=== PATIENT | male | born 1965 | race Caucasian/White ===

== ENCOUNTER 2020-02-16 12:32 | Inpatient (IN) | payer MEDICAID, OTHER ==
[2020-02-16] VITALS (10 sets, daily range): BP systolic 51–104; BP diastolic 34–83
[~2020-02-16] VITALS: Ht 182.9 cm; Wt 94.3 kg
[~2020-02-16 12:32] MED LIST: FLUT16SP2 BOTHNARES; LEVO100T9 PO; TRAZ-251 PO; rocuronium 10mg/ml inj IV ONE
[2020-02-16] MEDS ORDERED: ondansetron/PF 4mg/2ml inj IV ONE (13:00)
[2020-02-16] MEDS ORDERED: normal saline 1000ML IV soln IVB ONE ×2 (13:00→14:35)
[2020-02-16] MEDS ORDERED: diltiazem 5mg/ml 5ml inj. IV ONE ×2 (13:00→13:35)
[2020-02-16] MEDS ORDERED: diltiazem-NS 100mg/100ml 100 ML IV SCH (13:05)
[2020-02-16 13:20] LABS: BASOPHILS # (AUTO) 0.1 X10'3 (0-0.2); BASOPHILS % (AUTO) 0.6 % (0-1); EOSINOPHILS % (AUTO) 0.2 % (0-6); HEMATOCRIT 55.5 % (42.0-52.0); LYMPHOCYTES # (AUTO) 2.2 X10'3 (1.1-4.8); LYMPHOCYTES % (AUTO) 15.4 % (21-51); MEAN CORPUSCULAR HEMOGLOBIN 33.4 PG (27.0-31.0); MEAN CORPUSCULAR HGB CONC 32.6 g/dL (33.0-36.5); MEAN CORPUSCULAR VOLUME 102.6 FL (78-98); MEAN PLATELET VOLUME 9.6 FL (7.4-10.4); MONOCYTES # (AUTO) 1.5 X10'3 (0-0.9); MONOCYTES % (AUTO) 10.6 % (2-12); NEUTROPHILS # (AUTO) 10.3 X10'3 (1.8-7.7); NEUTROPHILS % (AUTO) 73.2 % (42-75); PLATELET COUNT 216 X10'3 (140-440); RED BLOOD COUNT 5.41 X10'6 (4.70-6.10); RED CELL DISTRIBUTION WIDTH 15.2 % (11.5-14.5); WHITE BLOOD COUNT 14.1 X10'3 (4.5-11.0)
[2020-02-16 13:22] LABS: HEMOGLOBIN 18.1 g/dl (14.0-17.9)
--- NOTE | 2020-02-16 13:25 | NUR ---
Pt gave verbal consent to update Corrine ([phone]) who reports pt was seen @ [facility] ~ 1 wk ago where Synthroid was started. Corrine reports increased agitation with outbursts worsening in past 24 hrs. Pt's Psychiatrist Michelle Colindres was able to convince pt to come to ed as he has been reluctant. Pt has been sober 37yrs. EDMD Carson and primary RN Aurelia updated
[2020-02-16 13:39] LABS: ALBUMIN 3.4 G/DL (3.4-5.0); ALBUMIN/GLOBULIN RATIO 1.3 (1.1-1.5); ALKALINE PHOSPHATASE 65 IU/L (46-116); ANION GAP 12 (8-16); BILIRUBIN,TOTAL 1.4 MG/DL (0.1-1.0); BLOOD UREA NITROGEN 39 MG/DL (7-18); BUN/CREATININE RATIO 20.3 (5.4-32.0); CALCIUM 8.9 MG/DL (8.5-10.1); CHLORIDE 101 MMOL/L (99-107); CREATININE 1.92 MG/DL (0.60-1.10); GLUCOSE 123 MG/DL (70-104); POTASSIUM 5.2 MMOL/L (3.5-5.1); SODIUM 137 MMOL/L (135-145); TOTAL CARBON DIOXIDE 24.2 MMOL/L (24-32); TOTAL PROTEIN 6.1 G/DL (6.4-8.2); eGFR 37 ML/MIN
[2020-02-16] MEDS ORDERED: heparin 10,000 units/1 ML INJ IV ONE ×2 (13:40→13:45)
[2020-02-16] MEDS ORDERED: heparin 10,000 units/1 ML INJ IV PRN (13:40)
[2020-02-16] MEDS ORDERED: heparin 25,000 UNIT/250ml bag 250 ML IV SCH (13:40)
[2020-02-16] MEDS ORDERED: aspirin 325mg tablet PO ONE (13:40)
[2020-02-16 13:42] LABS: ASPARTATE AMINO TRANSFERASE 1345 U/L (10-37)
[2020-02-16 13:43] LABS: ALANINE AMINOTRANSFERASE 1946 U/L (12-78)
[2020-02-16 13:55] LABS: PARTIAL THROMBOPLASTIN TIME 25 SECONDS (22-32)
[2020-02-16] MEDS ORDERED: metoprolol tartrate 1mg/ml inj IV ONE (14:00)
--- NOTE | 2020-02-16 14:30 | NUR ---
PER DR ESTES INCREASE THE DILTIAZEM TO 15 MG HR.
--- NOTE | 2020-02-16 15:00 | NUR ---
Dr. Varner at bedside for symptomatic hypotension. Verbal order for 2nd bolus of normal saline received and administered. Patient currently has 2 litres of normal saline wide open into 2 ivs. Per , Branden turned off.
--- NOTE | 2020-02-16 15:12 | NUR ---
2nd EKG done at 1512.
--- NOTE | 2020-02-16 15:15 | NUR ---
aspirin 324 was administered as ordered at 1400 and scanned but not saved in emar.
[2020-02-16] MEDS ORDERED: LORazepam 2 mg/ml vial ONE (15:28)
[2020-02-16] MEDS ORDERED: fentaNYL/PF 50MCG/1 ML 2ML syringe IV ONE (15:30)
[2020-02-16] MEDS ORDERED: LORazepam 2 mg/ml vial IV ONE (15:30)
--- NOTE | 2020-02-16 16:55 | NUR ---
Dr. Varner notified of decrease in blood pressure to 77/43. MD to bedside. VO to hold amiodorone gtt at this time - hr 90 at the time of his assessment. VO to bolus remainder of NS bag, 600 mls.
--- NOTE | 2020-02-16 16:58 | NUR ---
Updated pt's on status. 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 and that several of his peers were currently experiencing pulmonary issues. NOELLE Varner informed.
--- NOTE | 2020-02-16 17:20 | NUR ---
Dr Gooden assessed pt stating he is not taking him to microbiology lab manager today. He requested NOELLE Varner, who is currently in a CODE, consider an Echo and refer pt to Engineering Instructor.
--- NOTE | 2020-02-16 17:25 | NUR ---
Dr. Gooden at bedside. updated on BP trends, patient condition and medications given today.
--- NOTE | 2020-02-16 17:35 | NUR ---
Discussed Dr Gooden's recommendation with NOELLE Varner; new order for Echo received.
[2020-02-16] MEDS ORDERED: ondansetron/PF 4mg/2ml inj IV PRN ×3 (17:40→19:00)
[2020-02-16] MEDS ORDERED: magnesium hydroxide 30ml (MOM) UD suspension PO PRN ×2 (17:40→19:00)
[2020-02-16] MEDS ORDERED: aspirin 81mg tablet.DR PO ONE (17:40)
[2020-02-16] MEDS ORDERED: mag hydrox/Alum hydrox/simeth 30ml oral suspension PO PRN (17:40)
[2020-02-16] MEDS ORDERED: acetaminophen 325mg tablet PO PRN ×5 (17:40→19:00)
[2020-02-16] MEDS ORDERED: [UNRECOGNIZED DRUG - CODE] PO (17:43)
[2020-02-16] MEDS ORDERED: LIDOcaine 2% 10ml TOPICAL JELLY (Urojet) TP ONE (17:45)
[2020-02-16] MEDS ORDERED: morphine 2 MG/ML inj. syringe IV PRN ×2 (17:45→19:00)
[2020-02-16] MEDS ORDERED: morphine 4 MG/ML inj SYRINge IV PRN ×2 (17:45→19:00)
--- NOTE | 2020-02-16 17:48 | NUR ---
Dr. Reyes at bedside. updated on patient's condition and medications. Set up for CL.
[2020-02-16] MEDS: midazolam 100mg in NS 100ml 100 ML IV PRN (19:00)
[2020-02-16] MEDS ORDERED: potassium Cl 20 mEq SR tablet PO PRN ×2 (19:00)
[2020-02-16 19:13] LABS: ABG BASE EXCESS -14.3 mmol/L (-2.0-2.0); ABG HCO3 12.1 mmol/L (22.0-26.0); ABG PCO2 (T) 30.2 mmHg (35.0-48.0); ABG PO2 (T) 125.6 mmHg (75.0-100.0); FCOHb 0.2 % (0.0-3.9); FMetHb 0.5 % (0.0-1.5); FO2Hb 97.3 % (94-97); PEEP 5 cm H2O; RESPIRATORY RATE 16 b/min; TIDAL VOLUME 500 mL; TOTAL HEMOGLOBIN 18.6 G/dl (14.0-18.0)
--- NOTE | 2020-02-16 19:13 | NUR ---
pt was moved into ed room 4 to be intubated 20mg etomidate and 100mg of Rocuronium given at 1830. 1832 vs 111hr, 181/140 bp and 93 o2 bagged. 1 intabation attempt at 1835 26 at teeth. quad central line placed at 1840. 1852 art line placed.
--- NOTE | 2020-02-16 19:30 | NUR ---
DR. MURO CALLED AND WANTS AN EHO DONE STAT, ECHO WAS PAGED WILL CONTINUE TO MONITOR
[2020-02-16] MEDS: docusate sod 100mg capsule PO SCH (20:00)
[2020-02-16] MEDS: normal saline 1000ml 1,000 ML IV SCH (20:03)
[2020-02-16] MEDS: CefTRIAXone 2gm/D5W 50ml BAG 50 ML IV SCH (20:09)
[2020-02-16 20:16] LABS: URINE AMPHETAMINE SCREEN NEGATIVE (Neg); URINE BARBITUATE SCREEN NEGATIVE (Neg); URINE BENZODIAZEPINES SCREEN NEGATIVE (Neg); URINE CANNABINOID SCREEN NEGATIVE (Neg); URINE COCAINE SCREEN NEGATIVE (Neg); URINE METHADONE SCREEN NEGATIVE (Neg); URINE OPIATE SCREEN NEGATIVE (Neg); URINE PHENCYCLIDINE SCREEN NEGATIVE (Neg)
--- NOTE | 2020-02-16 20:18 | NUR ---
ECHO complete and bedside.
--- NOTE | 2020-02-16 20:30 | NUR ---
MD Reyes updated on plan of care. MD instructed to HOLD Heparin and Amio gtt until ECHO results. Will continue to monitor.
[2020-02-16] MEDS ORDERED: midazolam 100mg in NS 100ml 100 ML IV PRN (20:55)
--- NOTE | 2020-02-16 21:02 | NUR ---
Report given to PEDRO Mckinnon in ICU. Pt to be transferred to ICU 2039. Rt has been paged for transport.
--- NOTE | 2020-02-16 21:06 | NUR ---
MD Mckinley updated nurse of ECHO result of 20%. also ordered that Amio gtt be restarted to tx uncontrolled AFIB with HR in the 120-130s.
[2020-02-16 21:07] LABS: ALBUMIN 2.8 G/DL (3.4-5.0); ALBUMIN/GLOBULIN RATIO 1.2 (1.1-1.5); ALKALINE PHOSPHATASE 55 IU/L (46-116); ANION GAP 15 (8-16); BILIRUBIN,TOTAL 1.7 MG/DL (0.1-1.0); BLOOD UREA NITROGEN 40 MG/DL (7-18); BUN/CREATININE RATIO 18.3 (5.4-32.0); CALCIUM 7.7 MG/DL (8.5-10.1); CHLORIDE 105 MMOL/L (99-107); CREATINE KINASE 306 U/L (39-308); CREATININE 2.19 MG/DL (0.60-1.10); GLUCOSE 96 MG/DL (70-104); SODIUM 137 MMOL/L (135-145); TOTAL CARBON DIOXIDE 17.4 MMOL/L (24-32); TOTAL PROTEIN 5.1 G/DL (6.4-8.2); eGFR 31 ML/MIN
[2020-02-16] MEDS: amiodarone/D5 360MG/200ML BAG 200 ML IV SCH ×2 (21:09→22:25)
[2020-02-16 21:10] LABS: ALANINE AMINOTRANSFERASE 1577 U/L (12-78); ASPARTATE AMINO TRANSFERASE 1040 U/L (10-37)
[2020-02-16 21:17] LABS: POTASSIUM 6.3 MMOL/L (3.5-5.1)
--- NOTE | 2020-02-16 21:30 | NUR ---
report received from karely tinoco in ED at 2114. patient arrives to icu near 2129. placed on monitor. versed gtt at 2 mg/hr. via right fem QLC. also samantha at right fem. site is cdi. samantha is positional and also appears as if some beats are not perfusing. correlates with cuff press. neurologically, patient small grimaces with disturbances, no commands, 2 mm sluggish. spontaneously moves upper extremities. b/l ears are dusky also toes and finger tips. legs are mottled, difficult to tow picker a good sat wave. no distress, ett 8.0 25 cm at teeth. sxn for scant to nothing. restraints applied per order per protocol for safety. patient is jean carlos, afib on monitor 120's. pulse is difficult to palpate at any site including femoral. # [address] fr [address] in place with no urine in chamber or bag. # 16 salem sump inserted and placed to lwsxn - brown bilious out - small amount. 2 rn skin check completed. reddened an periarea but all blanching, no dti, no open areas. optifoam placed to coccyx. spoke to - elisabeth [phone] = cell. updated her with current status of patient. MRSA swab of nares sent to lab, patient temp down, warm blankets to head and body. will continue to monitor. scrap dealer kris goldstein was at bedside and aware of all above.
[2020-02-16] MEDS ORDERED: ipratropium/albuterol 3ml nebule NEB PRN (21:40)
[2020-02-16] MEDS ORDERED: insulin regular, human 10 units/0.1 ml syringe IV ONE (21:45)
[2020-02-16] MEDS ORDERED: PATIROMER CALCIUM SORBITEX 8.4 GM POWD.PACK PO ONE (21:45)
[2020-02-16] MEDS ORDERED: dextrose 50%-water 50ml dispensing syringe IV ONE (21:45)
[2020-02-16] MEDS ORDERED: NORepinephrine 8mg/ 250ml NS 250 ML IV ONE (22:32)
[2020-02-16] MEDS ORDERED: NORepinephrine 8mg/ 250ml NS 250 ML IV PRN (22:35)
[2020-02-17] VITALS (27 sets, daily range): BP systolic 74–130; BP diastolic 48–96
--- NOTE | 2020-02-17 01:20 | NUR ---
julissa palafox ordered - i do not have enough urine to send this sample - will keep at bedside until enough urine Addendum: 02/17/20 at 0558 by Ino Mccord RN I WAS ABLE TO SEND A U/A NEAR 0500
[2020-02-17 02:09] LABS: ALBUMIN 2.5 G/DL (3.4-5.0); ALBUMIN/GLOBULIN RATIO 1.3 (1.1-1.5); ALKALINE PHOSPHATASE 51 IU/L (46-116); ANION GAP 13 (8-16); BILIRUBIN,TOTAL 1.2 MG/DL (0.1-1.0); BLOOD UREA NITROGEN 46 MG/DL (7-18); CALCIUM 7.8 MG/DL (8.5-10.1); CHLORIDE 106 MMOL/L (99-107); CREATININE 2.42 MG/DL (0.60-1.10); GLUCOSE 135 MG/DL (70-104); MAGNESIUM 1.9 MG/DL (1.5-2.4); PHOSPHORUS 6.1 MG/DL (2.3-4.5); POTASSIUM 5.2 MMOL/L (3.5-5.1); SODIUM 137 MMOL/L (135-145); TOTAL CARBON DIOXIDE 18.3 MMOL/L (24-32); TOTAL PROTEIN 4.5 G/DL (6.4-8.2); eGFR 28 ML/MIN
[2020-02-17 02:10] LABS: ALANINE AMINOTRANSFERASE 2793 U/L (12-78)
[2020-02-17 02:22] LABS: BASOPHILS % (AUTO) 0.1 % (0-1); EOSINOPHILS % (AUTO) 0.1 % (0-6)
[2020-02-17 02:23] LABS: HEMATOCRIT 50.1 % (42.0-52.0); HEMOGLOBIN 16.4 g/dl (14.0-17.9); LYMPHOCYTES # (AUTO) 1.4 X10'3 (1.1-4.8); LYMPHOCYTES % (AUTO) 6.5 % (21-51); MEAN CORPUSCULAR HEMOGLOBIN 33.9 PG (27.0-31.0); MEAN CORPUSCULAR HGB CONC 32.6 g/dL (33.0-36.5); MEAN CORPUSCULAR VOLUME 103.9 FL (78-98); MEAN PLATELET VOLUME 9.7 FL (7.4-10.4); MONOCYTES # (AUTO) 1.6 X10'3 (0-0.9); MONOCYTES % (AUTO) 7.5 % (2-12); NEUTROPHILS # (AUTO) 18.2 X10'3 (1.8-7.7); NEUTROPHILS % (AUTO) 85.8 % (42-75); PLATELET COUNT 164 X10'3 (140-440); RED BLOOD COUNT 4.82 X10'6 (4.70-6.10); RED CELL DISTRIBUTION WIDTH 15.5 % (11.5-14.5); WHITE BLOOD COUNT 21.2 X10'3 (4.5-11.0)
[2020-02-17 02:27] LABS: ASPARTATE AMINO TRANSFERASE 2545 U/L (10-37)
--- NOTE | 2020-02-17 02:43 | NUR ---
patients artline is positional, oozing a bit of blood, pressure dressing to help with wave, narrow pulse pressure noted. patient blood pressure by cuff is significantly less at times when cuff reading sbp 50-70, samantha is sbp 80-90 with a what seems like multiple beats not perfusing per the wave. patient remains in a-fib. levophed titration using cuff pressure. patient also appears to sporadically have dusky ears and toes, knees as well - then will resolve and back to dusky again - similar to bp.
[2020-02-17 03:03] LABS: ABG BASE EXCESS -10.5 mmol/L (-2.0-2.0); ABG HCO3 13.3 mmol/L (22.0-26.0); ABG OXYGEN SATURATION 99.5 % (94-97); ABG PCO2 (T) 25.9 mmHg (35.0-48.0); ABG PO2 (T) 237.7 mmHg (75.0-100.0); FCOHb 0.5 % (0.0-3.9); FMetHb 0.5 % (0.0-1.5); FO2Hb 98.5 % (94-97); PATIENT TEMPERATURE 36.7; PEEP 5 cm H2O; RESPIRATORY RATE 16 b/min; TIDAL VOLUME 500 mL; TOTAL HEMOGLOBIN 17.6 G/dl (14.0-18.0)
[2020-02-17] MEDS: normal saline 1000ml 1,000 ML IV SCH ×2 (03:40→14:18)
[2020-02-17] MEDS: amiodarone/D5 360MG/200ML BAG 200 ML IV SCH ×3 (04:53→17:18)
[2020-02-17 05:54] LABS: CLARITY,URINE SLIGHTLY CLOUDY (Clear); COLOR,URINE YELLOW (Yellow); GLUCOSE, URINE NEGATIVE (Neg); KETONES,URINE NEGATIVE (Neg); LEUKOCYTE ESTERASE ,URINE NEGATIVE (Neg); NITRITES, URINE NEGATIVE (Neg); OCCULT BLOOD,URINE MODERATE (Neg); PROTEIN,URINE 100 mg/dl (Neg); UROBILINOGEN,URINE 0.2 E.U/dL (0.2-1.0)
[2020-02-17 05:56] LABS: UA COLLECTION TYPE FOLEY CATH
[2020-02-17 06:05] LABS: WBC,URINE 30-50 /HPF (0-4)
[2020-02-17 06:06] LABS: BACTERIA,URINE 3+ /HPF (Neg); MUCUS STRANDS MODERATE /LPF (Neg); SQUAMOUS EPITHELIAL CELL,UR FEW /LPF (FEW)
[2020-02-17 06:08] LABS: COARSE GRANULAR CAST 0-3 /LPF (NEGATIVE); FINE GRANULAR CAST 0-3 /LPF (NEGATIVE)
--- NOTE | 2020-02-17 06:38 | NUR ---
LE: 1450 Accompanying episode of hypotension was a blue bilateral ear flushing that slowly spread to top of head. Fluid administration help resolve the hypotension with eventual receeding of flushing from head to ears, which never resolved. Pt denied any ingestion of colloidal silver or any vitamins. 1530: Confusion increasing, though pt able to focus and respond appropriately when asked questions. Possible occassional hullucinations occurring. 1730: spoke with pt following her conversation with Dr Reyes who is bedside and preparing for CL placement w/ possible intubation.
--- NOTE | 2020-02-17 06:44 | NUR ---
Patient in room ICU 2039. I have received report from Ino Holland and had the opportunity to ask questions and assume patient care.
[2020-02-17 07:34] LABS: LARGE PLATELETS FEW; NUCLEATED RED BLOOD CELLS 1 /100WBC (0-0); PLATELET ESTIMATE NORMAL; TOTAL CELLS COUNTED 100
[2020-02-17 07:35] LABS: POLYCHROMASIA 1+; TOXIC GRANULATION 1+
[2020-02-17] MEDS: famotidine/PF 10 mg/ml inj IV SCH (07:37)
[2020-02-17] MEDS: CefTRIAXone 2gm/D5W 50ml BAG 50 ML IV SCH (07:37)
[2020-02-17] MEDS: atorvastatin 20mg tablet PO SCH (07:38)
[2020-02-17] MEDS: aspirin 81mg tablet.DR PO SCH (07:38)
[2020-02-17] MEDS: docusate sod 100mg capsule PO SCH (08:00)
[2020-02-17] MEDS: NORepinephrine 8mg/ 250ml NS 250 ML IV PRN ×2 (08:15→14:27)
[2020-02-17 08:46] LABS: BLOOD UREA NITROGEN 50 MG/DL (7-18); BUN/CREATININE RATIO 17.9 (5.4-32.0); CHLORIDE 105 MMOL/L (99-107); CREATININE 2.79 MG/DL (0.60-1.10); GLUCOSE 117 MG/DL (70-104); PHOSPHORUS 6.4 MG/DL (2.3-4.5); SODIUM 137 MMOL/L (135-145); eGFR 24 ML/MIN
[2020-02-17 08:49] LABS: ALBUMIN 2.7 G/DL (3.4-5.0); ANION GAP 17 (8-16); CALCIUM 8.2 MG/DL (8.5-10.1); TOTAL CARBON DIOXIDE 15.1 MMOL/L (24-32)
[2020-02-17 08:53] LABS: TROPONIN I 9.15 NG/ML (0.0-0.05)
[2020-02-17 11:00] LABS: SODIUM,URINE RANDOM < 15 MEQ/L; TOTAL PROTEIN,URINE RANDOM 229.2 MG/DL
--- NOTE | 2020-02-17 11:14 | NUR ---
0700- Doppler pulses to popliteal, pulses corelate to every 3rd beat or so. Toes are cold and deep purple, rouses to sound and pain, no opening of eyes, no following of commands, grimaces, HR remains elevated up to the 140's, little to no urine output. 1000- critical care rounds- Dr Trimble made aware of Bun/creat, no urine output, elevated WBC with fever of 38.5, K of 6 .0, troponins increased to 9.15, no need for further serial trops. Orders received for urine studies, fentanyl gtt for discomfort. Contact development architect to verify consult and cath. 1045- Spoke with Dr Gooden- He wasnt going to take patient to garden labourer until more stable. Made MD aware that sats are stable. He will review. Stated currently not emergent not a STEMI.
[2020-02-17] MEDS: midazolam 100mg in NS 100ml 100 ML IV PRN (11:36)
[2020-02-17] MEDS: FENTANYL-0.9 % NACL/PF 100 ML IV PRN (11:37)
--- NOTE | 2020-02-17 11:40 | NUR ---
Initial: Pt intubated s/p shock w/ respiratory distress and cardiomyopathy per EMR; kidney function also declining per greaser and oiler at rounds. Pending physical assessment w/ OG in place at this time and MAP 100 this AM s/p norepinephrine. TF recs below in case prolonged intubation. LBM 02/14. Will continue to monitor. Rec: 1. IF TF; Vital High Protein at 95ml/hr goal; to provide 2280ml volume, 2280 kcals, 1915ml free water, and 200g protein. 2. IF TF; additional water flush per greaser and oiler given renal status and Na 137 at this time 3. IF TF; PALB Q /; daily wts 4. routine bowel care 5. upon extubation; advance diet as medically indicated to heart healthy Addendum: 02/17/20 at [address] Amended: Links added.
[2020-02-17 15:20] LABS: CLARITY,URINE CLOUDY (Clear); GLUCOSE, URINE NEGATIVE (Neg); KETONES,URINE NEGATIVE (Neg); LEUKOCYTE ESTERASE ,URINE NEGATIVE (Neg); NITRITES, URINE NEGATIVE (Neg); OCCULT BLOOD,URINE LARGE (Neg); PROTEIN,URINE 30 mg/dl (Neg); UROBILINOGEN,URINE 0.2 E.U/dL (0.2-1.0)
[2020-02-17 15:27] LABS: COLOR,URINE DARK YELLOW (Yellow); UA COLLECTION TYPE FOLEY CATH
[2020-02-17 15:38] LABS: RBC,URINE 20-50 /HPF (0-2)
[2020-02-17 15:39] LABS: WBC,URINE 0-4 /HPF (0-4)
[2020-02-17 15:40] LABS: BACTERIA,URINE 2+ /HPF (Neg); MUCUS STRANDS MODERATE /LPF (Neg); SQUAMOUS EPITHELIAL CELL,UR FEW /LPF (FEW)
[2020-02-17 15:41] LABS: CELLULAR CAST 0-4 /LPF (NEGATIVE); FINE GRANULAR CAST 0-3 /LPF (NEGATIVE)
[2020-02-17 16:41] LABS: UA EOSINOPHILS NO EOS /HPF
[2020-02-17] MEDS ORDERED: normal saline 1000ml 1,000 ML IV ONE (17:50)
--- NOTE | 2020-02-17 17:51 | NUR ---
174- Dr Trimble rounded, CVP ander and yanci, reading 6, give 1 lt NS and see if that helps the HR.
--- NOTE | 2020-02-17 18:16 | NUR ---
Problems reprioritized. Patient report given, questions answered & plan of care reviewed with Ino Garcia
[2020-02-17] MEDS: docusate sodium 100mg/10ml UD cup PO SCH (20:51)
[2020-02-17] MEDS: lactobacillus rhamnosus 10,000 MMU CELLS/CAPSULE PO SCH (20:51)
[2020-02-18] VITALS (24 sets, daily range): BP systolic 94–118; BP diastolic 54–87
[2020-02-18] MEDS: FENTANYL-0.9 % NACL/PF 100 ML IV PRN (00:08)
[2020-02-18] MEDS: midazolam 100mg in NS 100ml 100 ML IV PRN (00:08)
[2020-02-18] MEDS: amiodarone/D5 360MG/200ML BAG 200 ML IV SCH ×6 (00:09→22:25)
[2020-02-18] MEDS: normal saline 1000ml 1,000 ML IV SCH ×3 (00:10→18:50)
[2020-02-18 02:40] LABS: BASOPHILS % (AUTO) 0.1 % (0-1); EOSINOPHILS % (AUTO) 0.1 % (0-6); HEMATOCRIT 49.9 % (42.0-52.0); HEMOGLOBIN 16.2 g/dl (14.0-17.9); LYMPHOCYTES % (AUTO) 5.8 % (21-51); MEAN CORPUSCULAR HEMOGLOBIN 33.7 PG (27.0-31.0); MEAN CORPUSCULAR HGB CONC 32.5 g/dL (33.0-36.5); MEAN CORPUSCULAR VOLUME 103.4 FL (78-98); MONOCYTES # (AUTO) 1.2 X10'3 (0-0.9); MONOCYTES % (AUTO) 6.8 % (2-12); NEUTROPHILS % (AUTO) 87.2 % (42-75); PLATELET COUNT 140 X10'3 (140-440); RED BLOOD COUNT 4.83 X10'6 (4.70-6.10); RED CELL DISTRIBUTION WIDTH 15.6 % (11.5-14.5); WHITE BLOOD COUNT 17.2 X10'3 (4.5-11.0)
[2020-02-18] MEDS: NORepinephrine 8mg/ 250ml NS 250 ML IV PRN (02:59)
[2020-02-18] MEDS: mineral oil/petrolatum ophthal oint EACHEYE SCH ×4 (03:02→20:15)
[2020-02-18 03:05] LABS: ALANINE AMINOTRANSFERASE 2421 U/L (12-78); ALBUMIN 2.3 G/DL (3.4-5.0); ALBUMIN/GLOBULIN RATIO 1.2 (1.1-1.5); ALKALINE PHOSPHATASE 57 IU/L (46-116); ANION GAP 11 (8-16); ASPARTATE AMINO TRANSFERASE 1389 U/L (10-37); BILIRUBIN,TOTAL 0.6 MG/DL (0.1-1.0); BLOOD UREA NITROGEN 53 MG/DL (7-18); BUN/CREATININE RATIO 19.2 (5.4-32.0); CALCIUM 7.8 MG/DL (8.5-10.1); CHLORIDE 109 MMOL/L (99-107); CREATININE 2.76 MG/DL (0.60-1.10); GLUCOSE 123 MG/DL (70-104); MAGNESIUM 1.9 MG/DL (1.5-2.4); PHOSPHORUS 5.2 MG/DL (2.3-4.5); SODIUM 140 MMOL/L (135-145); TOTAL CARBON DIOXIDE 20.3 MMOL/L (24-32); TOTAL PROTEIN 4.3 G/DL (6.4-8.2); eGFR 24 ML/MIN
[2020-02-18 03:41] LABS: ABG BASE EXCESS -6.9 mmol/L (-2.0-2.0); ABG HCO3 16.6 mmol/L (22.0-26.0); ABG OXYGEN SATURATION 96.3 % (94-97); ABG PCO2 (T) 28.8 mmHg (35.0-48.0); ABG PO2 (T) 81.1 mmHg (75.0-100.0); FCOHb 0.6 % (0.0-3.9); FMetHb 0.4 % (0.0-1.5); FO2Hb 95.3 % (94-97); PATIENT TEMPERATURE 36.6; PEEP 5 cm H2O; RESPIRATORY RATE 16 b/min; TIDAL VOLUME 500 mL; TOTAL HEMOGLOBIN 17.2 G/dl (14.0-18.0)
--- NOTE | 2020-02-18 06:30 | NUR ---
Patient in room ICU 2039. I have received report from PEDRO Mckinnon and had the opportunity to ask questions and assume patient care.
[2020-02-18] MEDS: aspirin 81mg tablet.DR PO SCH (08:25)
[2020-02-18] MEDS: atorvastatin 20mg tablet PO SCH (08:25)
[2020-02-18] MEDS: famotidine/PF 10 mg/ml inj IV SCH (08:25)
[2020-02-18] MEDS: docusate sodium 100mg/10ml UD cup PO SCH (08:25)
[2020-02-18] MEDS: lactobacillus rhamnosus 10,000 MMU CELLS/CAPSULE PO SCH (08:25)
[2020-02-18] MEDS ORDERED: heparin 10,000 units/1 ML INJ IV ONE (10:05)
--- NOTE | 2020-02-18 10:13 | NUR ---
New orders from Nai for PICC line, heparin gtt protocol, and digoxin dose
--- NOTE | 2020-02-18 10:43 | NUR ---
TF/Miguel Ángel Consults: OGTF to start today per door trimmer; recs below given pt needs. Miguel Ángel 11 w/ skin intact per EMR. Noted current wt 118kg up from 110kg prior w/ negative fluid balance; likely true wt 110kg making true BMI 33. Will monitor for TF tolerance and additional protein needs on vent. Rec: 1. OGTF per MD using Vital High Protein at 95ml/hr goal; to provide 2280ml volume, 2280 kcals, 1915ml free water, and 200g protein. 2. additional water flush 200ml Q4 3. PALB Q /; daily wts 4. routine bowel care 5. upon extubation; advance diet as medically indicated to heart healthy Addendum: 02/18/20 at [address] Amended: Links added.
[2020-02-18 11:16] LABS: BASOPHILS % (AUTO) 0.2 % (0-1); EOSINOPHILS % (AUTO) 0.1 % (0-6); HEMATOCRIT 49.3 % (42.0-52.0); HEMOGLOBIN 15.9 g/dl (14.0-17.9); LYMPHOCYTES # (AUTO) 0.8 X10'3 (1.1-4.8); LYMPHOCYTES % (AUTO) 5.5 % (21-51); MEAN CORPUSCULAR HEMOGLOBIN 33.5 PG (27.0-31.0); MEAN CORPUSCULAR HGB CONC 32.3 g/dL (33.0-36.5); MEAN CORPUSCULAR VOLUME 103.8 FL (78-98); MEAN PLATELET VOLUME 8.9 FL (7.4-10.4); MONOCYTES # (AUTO) 0.9 X10'3 (0-0.9); MONOCYTES % (AUTO) 5.9 % (2-12); NEUTROPHILS % (AUTO) 88.3 % (42-75); PARTIAL THROMBOPLASTIN TIME 34 SECONDS (22-32); PLATELET COUNT 128 X10'3 (140-440); RED BLOOD COUNT 4.75 X10'6 (4.70-6.10); RED CELL DISTRIBUTION WIDTH 16.3 % (11.5-14.5); WHITE BLOOD COUNT 14.8 X10'3 (4.5-11.0)
[2020-02-18] MEDS: heparin 25,000 UNIT/250ml bag 250 ML IV SCH (11:49)
[2020-02-18] MEDS ORDERED: acetaminophen 325mg tablet OGT PRN (13:02)
[2020-02-18] MEDS ORDERED: magnesium hydroxide 30ml (MOM) UD suspension OGT PRN (13:04)
[2020-02-18] MEDS ORDERED: potassium Cl 20 mEq SR tablet OGT PRN ×2 (13:04)
[2020-02-18 14:03] LABS: HBSAG SCREEN Negative (Negative); HEPATITIS C ANTIBODY <0.1 s/co ratio (0.0-0.9)
[2020-02-18] MEDS ORDERED: ondansetron 4mg rapidly disintigrating tab PO PRN (15:00)
[2020-02-18] MEDS: digoxin 250mcg/ml 2ml ampule IV SCH (15:34)
--- NOTE | 2020-02-18 18:10 | NUR ---
Problems reprioritized. Patient report given, questions answered & plan of care reviewed with karely Roberts.
[2020-02-18] MEDS: docusate sodium 100mg/10ml UD cup OGT SCH (20:15)
[2020-02-18] MEDS: lactobacillus rhamnosus 10,000 MMU CELLS/CAPSULE OGT SCH (20:15)
[2020-02-19] VITALS (24 sets, daily range): BP systolic 74–136; BP diastolic 47–99
[2020-02-19 01:36] LABS: BASOPHILS % (AUTO) 0.2 % (0-1); EOSINOPHILS % (AUTO) 0.3 % (0-6); HEMATOCRIT 47.2 % (42.0-52.0); HEMOGLOBIN 15.2 g/dl (14.0-17.9); LYMPHOCYTES # (AUTO) 0.8 X10'3 (1.1-4.8); LYMPHOCYTES % (AUTO) 6.6 % (21-51); MEAN CORPUSCULAR HEMOGLOBIN 33.9 PG (27.0-31.0); MEAN CORPUSCULAR HGB CONC 32.3 g/dL (33.0-36.5); MEAN PLATELET VOLUME 8.8 FL (7.4-10.4); MONOCYTES # (AUTO) 0.6 X10'3 (0-0.9); MONOCYTES % (AUTO) 5.1 % (2-12); NEUTROPHILS # (AUTO) 10.2 X10'3 (1.8-7.7); NEUTROPHILS % (AUTO) 87.8 % (42-75); PLATELET COUNT 109 X10'3 (140-440); RED BLOOD COUNT 4.49 X10'6 (4.70-6.10); RED CELL DISTRIBUTION WIDTH 16.2 % (11.5-14.5); WHITE BLOOD COUNT 11.6 X10'3 (4.5-11.0)
[2020-02-19] MEDS: mineral oil/petrolatum ophthal oint EACHEYE SCH ×4 (01:52→20:00)
[2020-02-19 01:57] LABS: ALBUMIN/GLOBULIN RATIO 0.9 (1.1-1.5); ALKALINE PHOSPHATASE 54 IU/L (46-116); ANION GAP 9 (8-16); ASPARTATE AMINO TRANSFERASE 628 U/L (10-37); BILIRUBIN,TOTAL 0.7 MG/DL (0.1-1.0); BLOOD UREA NITROGEN 50 MG/DL (7-18); BUN/CREATININE RATIO 22.6 (5.4-32.0); CHLORIDE 109 MMOL/L (99-107); CREATININE 2.21 MG/DL (0.60-1.10); GLUCOSE 154 MG/DL (70-104); MAGNESIUM 1.9 MG/DL (1.5-2.4); PHOSPHORUS 3.5 MG/DL (2.3-4.5); POTASSIUM 4.6 MMOL/L (3.5-5.1); SODIUM 141 MMOL/L (135-145); TOTAL CARBON DIOXIDE 22.6 MMOL/L (24-32); TOTAL PROTEIN 4.2 G/DL (6.4-8.2); eGFR 31 ML/MIN
[2020-02-19 02:00] LABS: ALANINE AMINOTRANSFERASE 1737 U/L (12-78)
[2020-02-19 03:38] LABS: ABG BASE EXCESS -3.8 mmol/L (-2.0-2.0); ABG HCO3 19.8 mmol/L (22.0-26.0); ABG OXYGEN SATURATION 97.7 % (94-97); ABG PCO2 (T) 30.9 mmHg (35.0-48.0); ABG PO2 (T) 89.4 mmHg (75.0-100.0); FCOHb 0.4 % (0.0-3.9); FMetHb 0.3 % (0.0-1.5); PATIENT TEMPERATURE 35.8; PEEP 5 cm H2O; RESPIRATORY RATE 16 b/min; TIDAL VOLUME 500 mL; TOTAL HEMOGLOBIN 16.2 G/dl (14.0-18.0)
[2020-02-19] MEDS: normal saline 1000ml 1,000 ML IV SCH ×2 (04:08→15:40)
[2020-02-19] MEDS: amiodarone/D5 360MG/200ML BAG 200 ML IV SCH ×4 (04:08→22:25)
--- NOTE | 2020-02-19 04:28 | NUR ---
call to february valerie goldstein to make aware platelets have dropped 50 % baseline. a.m. platelets = 109, baseline 216, no new orders
--- NOTE | 2020-02-19 08:44 | NUR ---
[facility] LINE INFORMATION: REF: [id number] LOT: [id number] EXP: 02/05/2021
[2020-02-19] MEDS: famotidine/PF 10 mg/ml inj IV SCH (09:08)
[2020-02-19] MEDS: docusate sodium 100mg/10ml UD cup OGT SCH ×2 (09:08→20:00)
[2020-02-19] MEDS: atorvastatin 20mg tablet OGT SCH (09:09)
[2020-02-19] MEDS: lactobacillus rhamnosus 10,000 MMU CELLS/CAPSULE OGT SCH ×2 (09:09→20:00)
[2020-02-19] MEDS: aspirin 81mg tab.chew OGT SCH (09:09)
[2020-02-19] MEDS: digoxin 250mcg/ml 2ml ampule IV SCH ×2 (09:09)
[2020-02-19] MEDS: dexmedetomidine/D5W 100mL 100 ML IV SCH ×2 (09:53→18:42)
[2020-02-19] MEDS: heparin 25,000 UNIT/250ml bag 250 ML IV SCH (14:17)
[2020-02-19] MEDS: heparin 10,000 units/1 ML INJ IV PRN (16:06)
[2020-02-19] MEDS ORDERED: ipratropium/albuterol 3ml nebule NEB PRN (16:40)
[2020-02-19] MEDS ORDERED: racepinephrine 11.25mg/0.5ml nebule NEB PRN (16:40)
--- NOTE | 2020-02-19 17:00 | NUR ---
MD order to extubate. RT at bedside to assist. Patient tolerated procedure well. SP02>92% on 3L NC. Called , Corrine to give update.
--- NOTE | 2020-02-19 18:15 | NUR ---
Problems reprioritized. Patient report given, questions answered & plan of care reviewed with PEDRO Mcdonald.
--- NOTE | 2020-02-19 19:37 | NUR ---
Pt is increasingly somulent and per report pt has not followed commands since extubation at 1700. Pt is only minimally responsive to painful stimuli. Discussed with KARI Dewitt and received order for YENNI
[2020-02-19 20:07] LABS: ABG BASE EXCESS -2.2 mmol/L (-2.0-2.0); ABG HCO3 21.9 mmol/L (22.0-26.0); ABG OXYGEN SATURATION 97.5 % (94-97); ABG PO2 (T) 94.8 mmHg (75.0-100.0); FCOHb 0.2 % (0.0-3.9); FLOW 3 L/min; FMetHb 0.3 % (0.0-1.5); TOTAL HEMOGLOBIN 15.6 G/dl (14.0-18.0)
[2020-02-19] MEDS: ipratropium/albuterol 3ml nebule NEB SCH (20:11)
[2020-02-20] VITALS (23 sets, daily range): BP systolic 101–170; BP diastolic 71–115
[2020-02-20] MEDS: mineral oil/petrolatum ophthal oint EACHEYE SCH ×4 (01:16→19:35)
[2020-02-20] MEDS: normal saline 1000ml 1,000 ML IV SCH ×2 (01:16→13:57)
[2020-02-20 03:02] LABS: BASOPHILS % (AUTO) 0.2 % (0-1); EOSINOPHILS % (AUTO) 0.3 % (0-6); HEMATOCRIT 45.4 % (42.0-52.0); LYMPHOCYTES # (AUTO) 0.8 X10'3 (1.1-4.8); MEAN CORPUSCULAR HEMOGLOBIN 34.4 PG (27.0-31.0); MEAN CORPUSCULAR HGB CONC 33.1 g/dL (33.0-36.5); MEAN CORPUSCULAR VOLUME 103.9 FL (78-98); MEAN PLATELET VOLUME 8.8 FL (7.4-10.4); MONOCYTES # (AUTO) 0.7 X10'3 (0-0.9); MONOCYTES % (AUTO) 7.6 % (2-12); NEUTROPHILS # (AUTO) 7.6 X10'3 (1.8-7.7); NEUTROPHILS % (AUTO) 82.9 % (42-75); PLATELET COUNT 101 X10'3 (140-440); RED BLOOD COUNT 4.37 X10'6 (4.70-6.10); RED CELL DISTRIBUTION WIDTH 16.1 % (11.5-14.5); WHITE BLOOD COUNT 9.1 X10'3 (4.5-11.0)
[2020-02-20 03:30] LABS: ALANINE AMINOTRANSFERASE 1186 U/L (12-78); ALBUMIN 1.9 G/DL (3.4-5.0); ALBUMIN/GLOBULIN RATIO 0.9 (1.1-1.5); ALKALINE PHOSPHATASE 55 IU/L (46-116); ANION GAP 9 (8-16); ASPARTATE AMINO TRANSFERASE 402 U/L (10-37); BILIRUBIN,TOTAL 0.6 MG/DL (0.1-1.0); BLOOD UREA NITROGEN 41 MG/DL (7-18); BUN/CREATININE RATIO 27.2 (5.4-32.0); CALCIUM 7.4 MG/DL (8.5-10.1); CHLORIDE 112 MMOL/L (99-107); CREATININE 1.51 MG/DL (0.60-1.10); GLUCOSE 91 MG/DL (70-104); MAGNESIUM 1.8 MG/DL (1.5-2.4); PHOSPHORUS 2.5 MG/DL (2.3-4.5); POTASSIUM 4.1 MMOL/L (3.5-5.1); PREALBUMIN 10.9 MG/DL (19-36); SODIUM 144 MMOL/L (135-145); TOTAL CARBON DIOXIDE 22.9 MMOL/L (24-32); TOTAL PROTEIN 4.1 G/DL (6.4-8.2); eGFR 48 ML/MIN
[2020-02-20] MEDS: dexmedetomidine/D5W 100mL 100 ML IV SCH (03:44)
[2020-02-20] MEDS: ipratropium/albuterol 3ml nebule NEB SCH ×4 (03:45→19:50)
--- NOTE | 2020-02-20 04:15 | NUR ---
Pt's HR returned to 130s-150s despite appearing to be resting calmly. Current BPs reading 130s-140s/90s on art line. Notified FANCY PACKER Esdras - no new orders given
[2020-02-20] MEDS: amiodarone/D5 360MG/200ML BAG 200 ML IV SCH ×4 (04:25→20:40)
--- NOTE | 2020-02-20 06:16 | NUR ---
Problems reprioritized. Patient report given, questions answered & plan of care reviewed with Nevaeh VASQUEZ.
[2020-02-20] MEDS: famotidine/PF 10 mg/ml inj IV SCH (07:12)
[2020-02-20] MEDS: fluticasone nasal spray 16GM bottle NS SCH (07:13)
[2020-02-20] MEDS: digoxin 250mcg/ml 2ml ampule IV SCH (07:13)
[2020-02-20] MEDS: heparin 10,000 units/1 ML INJ IV PRN (07:15)
[2020-02-20] MEDS: docusate sodium 100mg/10ml UD cup OGT SCH ×2 (08:00→19:36)
[2020-02-20] MEDS: levoTHYROXINE 100mcg tablet PO SCH (08:00)
[2020-02-20] MEDS: aspirin 81mg tab.chew OGT SCH (08:00)
[2020-02-20] MEDS: atorvastatin 20mg tablet OGT SCH (08:00)
[2020-02-20] MEDS: lactobacillus rhamnosus 10,000 MMU CELLS/CAPSULE OGT SCH ×2 (08:00→19:36)
[2020-02-20] MEDS: heparin 25,000 UNIT/250ml bag 250 ML IV SCH (14:07)
--- NOTE | 2020-02-20 16:10 | NUR ---
I have reviewed and agree with all medications administered and interventions performed by [facility] Student, Jose Novoa.
[2020-02-20] MEDS ORDERED: metoprolol tartrate 1mg/ml inj IV ONE (20:35)
--- NOTE | 2020-02-20 20:35 | NUR ---
Call placed to KARI Jimenes because pt's BP remains elevated 160s/110s and HR currently in the 130s. Received order for x1 IVP dose of Metoprolol 5mg
[2020-02-20] MEDS ORDERED: furosemide 40mg/4ml inj IV ONE (22:55)
--- NOTE | 2020-02-20 23:10 | NUR ---
Spoke with KARI Jimenes because patient continues to be hypertensive and has increased edema and modeling. Notified provider that pt has an EF of 20% and of pt changes with continued HTN despite earlier dose of IVP Metoprolol. Pt was on NS @ 50mL/hr. Received order to decrease IVF to 35mL/hr and give a one time IVP dose of 40mg Lasix
[2020-02-21] VITALS (21 sets, daily range): BP systolic 124–162; BP diastolic 80–108
[2020-02-21] MEDS: mineral oil/petrolatum ophthal oint EACHEYE SCH ×4 (02:00→20:00)
[2020-02-21] MEDS: ipratropium/albuterol 3ml nebule NEB SCH ×4 (02:25→20:17)
[2020-02-21] MEDS: amiodarone/D5 360MG/200ML BAG 200 ML IV SCH ×5 (04:25→23:22)
[2020-02-21 04:41] LABS: BASOPHILS # (AUTO) 0.1 X10'3 (0-0.2); EOSINOPHILS % (AUTO) 0.2 % (0-6); HEMATOCRIT 47.8 % (42.0-52.0); HEMOGLOBIN 15.7 g/dl (14.0-17.9); LYMPHOCYTES # (AUTO) 0.7 X10'3 (1.1-4.8); LYMPHOCYTES % (AUTO) 8.1 % (21-51); MEAN CORPUSCULAR HEMOGLOBIN 33.9 PG (27.0-31.0); MEAN CORPUSCULAR HGB CONC 32.9 g/dL (33.0-36.5); MEAN CORPUSCULAR VOLUME 103.1 FL (78-98); MEAN PLATELET VOLUME 8.9 FL (7.4-10.4); MONOCYTES # (AUTO) 0.7 X10'3 (0-0.9); MONOCYTES % (AUTO) 8.4 % (2-12); NEUTROPHILS # (AUTO) 6.9 X10'3 (1.8-7.7); NEUTROPHILS % (AUTO) 82.3 % (42-75); PLATELET COUNT 109 X10'3 (140-440); RED BLOOD COUNT 4.63 X10'6 (4.70-6.10); RED CELL DISTRIBUTION WIDTH 16.4 % (11.5-14.5); WHITE BLOOD COUNT 8.4 X10'3 (4.5-11.0)
[2020-02-21 05:04] LABS: ALANINE AMINOTRANSFERASE 961 U/L (12-78); ALBUMIN 2.2 G/DL (3.4-5.0); ALBUMIN/GLOBULIN RATIO 0.9 (1.1-1.5); ALKALINE PHOSPHATASE 59 IU/L (46-116); ANION GAP 8 (8-16); ASPARTATE AMINO TRANSFERASE 281 U/L (10-37); BILIRUBIN,TOTAL 0.8 MG/DL (0.1-1.0); BLOOD UREA NITROGEN 30 MG/DL (7-18); BUN/CREATININE RATIO 22.7 (5.4-32.0); CALCIUM 7.8 MG/DL (8.5-10.1); CHLORIDE 113 MMOL/L (99-107); CREATININE 1.32 MG/DL (0.60-1.10); GLUCOSE 95 MG/DL (70-104); MAGNESIUM 1.7 MG/DL (1.5-2.4); PHOSPHORUS 2.9 MG/DL (2.3-4.5); SODIUM 146 MMOL/L (135-145); TOTAL CARBON DIOXIDE 24.7 MMOL/L (24-32); TOTAL PROTEIN 4.7 G/DL (6.4-8.2); eGFR 56 ML/MIN
[2020-02-21] MEDS: heparin 10,000 units/1 ML INJ IV PRN ×2 (05:22→20:19)
[2020-02-21] MEDS: aspirin 81mg tab.chew OGT SCH (07:49)
[2020-02-21] MEDS: docusate sodium 100mg/10ml UD cup OGT SCH ×2 (07:49→21:20)
[2020-02-21] MEDS: lactobacillus rhamnosus 10,000 MMU CELLS/CAPSULE OGT SCH ×2 (07:50→21:20)
[2020-02-21] MEDS: atorvastatin 20mg tablet OGT SCH (07:50)
[2020-02-21] MEDS: fluticasone nasal spray 16GM bottle NS SCH (08:00)
[2020-02-21] MEDS: levoTHYROXINE 100mcg tablet PO SCH ×2 (08:00→13:43)
[2020-02-21] MEDS: famotidine/PF 10 mg/ml inj IV SCH (08:56)
--- NOTE | 2020-02-21 10:55 | NUR ---
Pt alert, oriented to self and time, remains disoriented to situation. Affect calm and appropriate, able to demonstrate use of call light and verbalize needs. Restraints discontinued at this time, will continue to monitor.
[2020-02-21] MEDS: normal saline 1000ml 1,000 ML IV SCH (11:59)
--- NOTE | 2020-02-21 13:31 | NUR ---
Reassessment: Pt has been extubated and TF discontinued. Pt with an active heart healthy diet though pt s/p BSS 02/[address] recs pt be NPO. Pt A/O x 1 and confused per physical assessment. LBM 02/17 with routine bowel care though PO meds held at this time d/t NPO status. No nutrition intervention implemented at this time given NPO status. Pt may benefit from Corpak for alternative nutrition if unable to advance PO diet. Will continue to follow closely and make recommendations as appropriate. Rec: 1. Advance diet as medically indicated to regular pending f/u BSS with ST 2. Monitor need for ONS with diet advancement 3. Routine bowel care 4. Scaled weights per rx 5. Alternative nutrition if unable to advance PO diet Addendum: 02/21/20 at [address] Amended: Links added.
--- NOTE | 2020-02-21 13:35 | NUR ---
Reassessment: Pt has been extubated and TF discontinued. Pt with an active heart healthy diet though pt s/p BSS 02/[address] recs pt be NPO. Pt A/O x 1 and confused per physical assessment. LBM 02/17 with routine bowel care though PO meds held at this time d/t NPO status. No nutrition intervention implemented at this time given NPO status. Pt may benefit from Corpak for alternative nutrition if unable to advance PO diet. Will continue to follow closely and make recommendations as appropriate. Rec: 1. Advance diet as medically indicated to regular pending f/u BSS with ST 2. Monitor need for ONS with diet advancement 3. Routine bowel care 4. Scaled weights per rx 5. Alternative nutrition if unable to advance PO diet (Jevity 1.2 at 75 mL/hr if TF) Addendum: 02/21/20 at [address] Amended: Links added. Addendum: 02/21/20 at [address] F/u: Pt s/p f/u BSS today with ST recs NPO except meds w/ puree and okay for ice chips. Bedside RN and tank charger have been notified per ST notes.
[2020-02-21] MEDS: heparin 25,000 UNIT/250ml bag 250 ML IV SCH (13:45)
--- NOTE | 2020-02-21 13:49 | NUR ---
ST Eval; ST eval today, ok to give critical PO meds with applesauce/puree.
--- NOTE | 2020-02-21 17:58 | NUR ---
I have reviewed and agree with all medications administered and interventions performed by [facility] Student, Jose Novoa.
[2020-02-21] MEDS: carvedilol 6.25mg tablet PO SCH (21:21)
[2020-02-22] VITALS (22 sets, daily range): BP systolic 108–138; BP diastolic 66–108
[2020-02-22] MEDS: mineral oil/petrolatum ophthal oint EACHEYE SCH ×2 (02:00→07:33)
[2020-02-22 03:09] LABS: MAGNESIUM 1.8 MG/DL (1.5-2.4); PHOSPHORUS 2.5 MG/DL (2.3-4.5)
--- NOTE | 2020-02-22 03:19 | NUR ---
PTS PTT CAME BACK CRITICALLY HIGH AT 91, CALLED LIZ MORELAND, NO NEW ORDERS RECEIVED. WILL FOLLOW OUT PROTOCOL.
[2020-02-22] MEDS: ipratropium/albuterol 3ml nebule NEB SCH ×4 (03:46→20:02)
--- NOTE | 2020-02-22 06:00 | NUR ---
Heparin GTT infusing at 900 units/kg/hr, amiodarone infusing at 16.66 ml/hr at change of shift
[2020-02-22] MEDS: levoTHYROXINE 100mcg tablet PO SCH (07:33)
[2020-02-22] MEDS: digoxin 250mcg/ml 2ml ampule IV SCH (07:33)
[2020-02-22] MEDS: famotidine/PF 10 mg/ml inj IV SCH (07:45)
[2020-02-22] MEDS: carvedilol 6.25mg tablet PO SCH ×2 (07:45→19:24)
[2020-02-22] MEDS: fluticasone nasal spray 16GM bottle NS SCH (08:00)
[2020-02-22] MEDS: docusate sodium 100mg/10ml UD cup OGT SCH ×2 (08:00→19:23)
--- NOTE | 2020-02-22 08:00 | NUR ---
POC Pt refused POC this am
[2020-02-22] MEDS: digoxin 125mcg (0.125mg) tablet PO SCH (09:04)
[2020-02-22] MEDS ORDERED: furosemide 40mg tablet PO ONE (09:10)
[2020-02-22] MEDS: lactobacillus rhamnosus 10,000 MMU CELLS/CAPSULE OGT SCH ×2 (10:17→19:23)
[2020-02-22] MEDS: aspirin 81mg tab.chew OGT SCH (10:17)
[2020-02-22] MEDS: atorvastatin 20mg tablet OGT SCH (10:18)
--- NOTE | 2020-02-22 13:02 | NUR ---
Patient in room ICU 2039. I have received report from PEDRO New and had the opportunity to ask questions and assume patient care.
--- NOTE | 2020-02-22 13:10 | NUR ---
Change in condition Pt called for nurse for sudden pain in R groin. Upon assessment, Large hematoma noted at insertion site of arterial line that was discontinued yesterday. RN held pressure, stopped heparin gtt, marked area with surgical marker and called Dr. Caballero. Orders received to send stat H&H, repeat Q4H, discontinue transfer order at this time. assessed pt. at bedside.
[2020-02-22 13:59] LABS: HEMATOCRIT 49.7 % (42.0-52.0); HEMOGLOBIN 16.3 g/dl (14.0-17.9); MEAN CORPUSCULAR HEMOGLOBIN 34.2 PG (27.0-31.0); MEAN CORPUSCULAR HGB CONC 32.9 g/dL (33.0-36.5); MEAN CORPUSCULAR VOLUME 103.9 FL (78-98); MEAN PLATELET VOLUME 8.9 FL (7.4-10.4); PLATELET COUNT 139 X10'3 (140-440); RED BLOOD COUNT 4.78 X10'6 (4.70-6.10); RED CELL DISTRIBUTION WIDTH 16.6 % (11.5-14.5); WHITE BLOOD COUNT 10.5 X10'3 (4.5-11.0)
[2020-02-22] MEDS: heparin 25,000 UNIT/250ml bag 250 ML IV SCH (14:05)
[2020-02-22] MEDS ORDERED: morphine 4 MG/ML inj SYRINge IV PRN (14:45)
[2020-02-22] MEDS ORDERED: morphine 4 MG/ML inj SYRINge ONE (14:50)
--- NOTE | 2020-02-22 16:25 | NUR ---
Status update Hemostasis continues to be maintained on R femoral, pressure dressing in place. assessment coordinator continues Q15 mins. Pt lying flat with leg straight. Warm compress placed on hematoma. Induration is decreasing. Will continue to monitor
[2020-02-22] MEDS ORDERED: furosemide 40mg/4ml inj IV SCH (18:10)
[2020-02-22] MEDS: amiodarone 200mg tablet PO SCH (19:23)
[2020-02-22] MEDS: acetaminophen 325mg tablet OGT PRN (19:24)
[2020-02-22 19:51] LABS: HEMOGLOBIN 15.8 g/dl (14.0-17.9); MEAN CORPUSCULAR HGB CONC 32.9 g/dL (33.0-36.5); MEAN CORPUSCULAR VOLUME 103.2 FL (78-98); MEAN PLATELET VOLUME 9.1 FL (7.4-10.4); PLATELET COUNT 144 X10'3 (140-440); RED BLOOD COUNT 4.65 X10'6 (4.70-6.10); RED CELL DISTRIBUTION WIDTH 16.3 % (11.5-14.5); WHITE BLOOD COUNT 10.7 X10'3 (4.5-11.0)
[2020-02-23] VITALS (21 sets, daily range): BP systolic 95–151; BP diastolic 56–109
[2020-02-23] MEDS: ipratropium/albuterol 3ml nebule NEB SCH ×4 (02:27→20:20)
[2020-02-23 03:12] LABS: HEMATOCRIT 46.8 % (42.0-52.0); HEMOGLOBIN 15.4 g/dl (14.0-17.9); MEAN CORPUSCULAR HEMOGLOBIN 33.7 PG (27.0-31.0); MEAN CORPUSCULAR HGB CONC 32.8 g/dL (33.0-36.5); MEAN CORPUSCULAR VOLUME 102.8 FL (78-98); MEAN PLATELET VOLUME 9.2 FL (7.4-10.4); PLATELET COUNT 144 X10'3 (140-440); RED BLOOD COUNT 4.55 X10'6 (4.70-6.10); RED CELL DISTRIBUTION WIDTH 16.3 % (11.5-14.5); WHITE BLOOD COUNT 10.4 X10'3 (4.5-11.0)
[2020-02-23 03:28] LABS: MAGNESIUM 1.8 MG/DL (1.5-2.4)
[2020-02-23] MEDS: amiodarone 200mg tablet PO SCH (08:00)
[2020-02-23] MEDS ORDERED: furosemide 40mg tablet PO SCH (08:00)
[2020-02-23] MEDS: docusate sodium 100mg/10ml UD cup OGT SCH ×2 (08:00→20:24)
[2020-02-23] MEDS: aspirin 81mg tab.chew OGT SCH (08:50)
[2020-02-23] MEDS: levoTHYROXINE 100mcg tablet PO SCH (08:50)
[2020-02-23] MEDS: lactobacillus rhamnosus 10,000 MMU CELLS/CAPSULE OGT SCH ×2 (08:50→20:25)
[2020-02-23] MEDS: atorvastatin 20mg tablet OGT SCH (08:50)
[2020-02-23] MEDS: carvedilol 6.25mg tablet PO SCH ×2 (08:50→20:25)
[2020-02-23] MEDS: digoxin 125mcg (0.125mg) tablet PO SCH (08:50)
[2020-02-23] MEDS: pantoprazole 40mg Tablet.DR PO SCH (08:51)
[2020-02-23] MEDS: fluticasone nasal spray 16GM bottle NS SCH (08:53)
[2020-02-23] MEDS ORDERED: potassium Cl 20 mEq SR tablet PO PRN (10:00)
[2020-02-23] MEDS: amiodarone/D5 360MG/200ML BAG 200 ML IV SCH ×3 (11:04→22:57)
[2020-02-23 12:03] LABS: ALBUMIN 2.4 G/DL (3.4-5.0); ANION GAP 1 (8-16); BLOOD UREA NITROGEN 31 MG/DL (7-18); BUN/CREATININE RATIO 22.6 (5.4-32.0); CALCIUM 8.1 MG/DL (8.5-10.1); CHLORIDE 110 MMOL/L (99-107); CREATININE 1.37 MG/DL (0.60-1.10); GLUCOSE 116 MG/DL (70-104); MAGNESIUM 1.8 MG/DL (1.5-2.4); PHOSPHORUS 3.2 MG/DL (2.3-4.5); POTASSIUM 4.3 MMOL/L (3.5-5.1); SODIUM 141 MMOL/L (135-145); TOTAL CARBON DIOXIDE 29.7 MMOL/L (24-32); eGFR 54 ML/MIN
[2020-02-23] MEDS: furosemide inj 1,000 MG in normal saline 250ml IV soln 150 ML IV SCH (12:14)
--- NOTE | 2020-02-23 13:39 | NUR ---
Prescott catheter placement Per Dr. Zaidi order when rounding, 16FR prescott cath anchored for urinary retention using sterile technique. 350 mL nimesh color urine returned. Pt tolerated well
[2020-02-23 19:15] LABS: ALBUMIN 2.3 G/DL (3.4-5.0); ANION GAP 5 (8-16); BLOOD UREA NITROGEN 34 MG/DL (7-18); CALCIUM 8.1 MG/DL (8.5-10.1); CHLORIDE 111 MMOL/L (99-107); CREATININE 1.48 MG/DL (0.60-1.10); GLUCOSE 123 MG/DL (70-104); MAGNESIUM 1.9 MG/DL (1.5-2.4); PHOSPHORUS 3.3 MG/DL (2.3-4.5); POTASSIUM 4.1 MMOL/L (3.5-5.1); SODIUM 146 MMOL/L (135-145); TOTAL CARBON DIOXIDE 30.3 MMOL/L (24-32); eGFR 49 ML/MIN
[2020-02-23] MEDS: acetaminophen 325mg tablet OGT PRN (20:25)
[2020-02-23] MEDS: thiamine 100mg tablet PO SCH (20:25)
[2020-02-24] VITALS (23 sets, daily range): BP systolic 94–161; BP diastolic 46–84
[2020-02-24] MEDS: ipratropium/albuterol 3ml nebule NEB SCH ×4 (02:34→20:51)
[2020-02-24 02:52] LABS: ALANINE AMINOTRANSFERASE 481 U/L (12-78); ALBUMIN 2.3 G/DL (3.4-5.0); ALBUMIN/GLOBULIN RATIO 0.9 (1.1-1.5); ALKALINE PHOSPHATASE 53 IU/L (46-116); ANION GAP 3 (8-16); ASPARTATE AMINO TRANSFERASE 82 U/L (10-37); BILIRUBIN,TOTAL 0.9 MG/DL (0.1-1.0); BLOOD UREA NITROGEN 32 MG/DL (7-18); BUN/CREATININE RATIO 21.2 (5.4-32.0); CALCIUM 8.3 MG/DL (8.5-10.1); CHLORIDE 110 MMOL/L (99-107); CREATININE 1.51 MG/DL (0.60-1.10); GLUCOSE 102 MG/DL (70-104); MAGNESIUM 1.7 MG/DL (1.5-2.4); POTASSIUM 3.8 MMOL/L (3.5-5.1); PREALBUMIN 15.3 MG/DL (19-36); SODIUM 146 MMOL/L (135-145); TOTAL PROTEIN 4.9 G/DL (6.4-8.2); eGFR 48 ML/MIN
[2020-02-24] MEDS: amiodarone/D5 360MG/200ML BAG 200 ML IV SCH ×4 (05:28→23:45)
[2020-02-24] MEDS: atorvastatin 20mg tablet OGT SCH (07:39)
[2020-02-24] MEDS: aspirin 81mg tab.chew OGT SCH (07:39)
[2020-02-24] MEDS: carvedilol 6.25mg tablet PO SCH ×2 (07:39→20:40)
[2020-02-24] MEDS: levoTHYROXINE 100mcg tablet PO SCH (07:39)
[2020-02-24] MEDS: lactobacillus rhamnosus 10,000 MMU CELLS/CAPSULE OGT SCH ×2 (07:39→20:40)
[2020-02-24] MEDS: digoxin 125mcg (0.125mg) tablet PO SCH (07:39)
[2020-02-24] MEDS: thiamine 100mg tablet PO SCH ×2 (07:40→20:40)
[2020-02-24] MEDS: multivitamins, therapeutics tablet PO SCH (07:40)
[2020-02-24] MEDS: K, MAG and/or Phos replacement - Verify level? MC SCH (07:40)
[2020-02-24] MEDS: fluticasone nasal spray 16GM bottle NS SCH (07:40)
[2020-02-24] MEDS: docusate sodium 100mg/10ml UD cup OGT SCH (07:40)
[2020-02-24] MEDS: pantoprazole 40mg Tablet.DR PO SCH (07:40)
[2020-02-24 09:10] LABS: ALBUMIN 2.3 G/DL (3.4-5.0); ANION GAP 5 (8-16); BLOOD UREA NITROGEN 32 MG/DL (7-18); BUN/CREATININE RATIO 21.9 (5.4-32.0); CALCIUM 7.8 MG/DL (8.5-10.1); CHLORIDE 106 MMOL/L (99-107); CREATININE 1.46 MG/DL (0.60-1.10); GLUCOSE 101 MG/DL (70-104); MAGNESIUM 1.6 MG/DL (1.5-2.4); POTASSIUM 3.5 MMOL/L (3.5-5.1); SODIUM 144 MMOL/L (135-145); TOTAL CARBON DIOXIDE 33.5 MMOL/L (24-32); eGFR 50 ML/MIN
[2020-02-24] MEDS ORDERED: acetaminophen 325mg tablet PO PRN ×2 (09:45)
[2020-02-24] MEDS ORDERED: aspirin 81mg tab.chew PO SCH (09:45)
[2020-02-24] MEDS ORDERED: atorvastatin 20mg tablet PO SCH (09:45)
[2020-02-24] MEDS ORDERED: potassium Cl 20 mEq SR tablet PO PRN ×2 (09:46)
[2020-02-24] MEDS ORDERED: magnesium hydroxide 30ml (MOM) UD suspension PO PRN (09:46)
--- NOTE | 2020-02-24 11:18 | NUR ---
F/u 02/23: Pt advanced to minced/moist/thin diet today per PARTS PROCESSOR recs s/p extubation. PO breakfast pending and pt to be NPO at lunch today for cardiac cath per RN. AOx3 today improving from prior ALOC per EMR. Will continue to monitor for additional protein/kcal needs and PO tolerance. Rec: 1. Continue minced/moist/thin diet per PARTS PROCESSOR recs 2. Monitor need for ONS pending PO hx 3. Routine bowel care 4. Scaled weights per rx Addendum: 02/24/20 at [address] Amended: Links added.
[2020-02-24] MEDS ORDERED: midazolam 2 mg/2 ml injection ONE (16:01)
[2020-02-24] MEDS ORDERED: LIDOcaine 1% (10mg/ml)w/preservative injection 20ml MDV ONE (16:01)
[2020-02-24] MEDS ORDERED: fentaNYL/PF 50MCG/1 ML 2ML syringe ONE (16:01)
[2020-02-24] MEDS ORDERED: iohexol 350MG/ML 100ml bottle IV ONE (16:02)
--- NOTE | 2020-02-24 16:16 | NUR ---
PT OFF FLOOR TO WASTE MACHINE TENDER
[2020-02-24] MEDS ORDERED: nitroGLYCERIN-Tridil 50MG/D5W 250 ML IV ONE (16:29)
[2020-02-24] MEDS ORDERED: heparin 1,000unit/ml 10ml vial 10 ML ONE (16:30)
[2020-02-24] MEDS ORDERED: verapamil 2.5 mg/ml inj IV ONE (16:30)
--- NOTE | 2020-02-24 17:09 | NUR ---
PT BACK FROM ALUMINUM MOLDER RADIAL PRESSURE BAND ON. FIRST RELEASE OF PRESSURE AT 1830. VSS. PT RESTING COMFORTABLE IN BED.
[2020-02-24] MEDS: docusate sodium 100mg/10ml UD cup PO SCH (20:41)
[2020-02-24] MEDS: traZODone 50mg tablet PO SCH (20:41)
--- NOTE | 2020-02-24 22:15 | NUR ---
PEDRO swain RN. 3 mL of air released from patient TR band at this time. No bleeding noted. RN will continue to monitor. Addendum: 02/24/20 at 223 by Magali Estes RN 2229 -- 3 ml of air removed from TR band. No bleeding noted. Addendum: 02/24/20 at 2247 by Magali Estes RN 2244 -- 3 mL air removed from TR band. No bleeding noted. Addendum: 02/24/20 at 2319 by Magali Estes RN 5 -- 3 mL air removed TR band. No bleeding. All air appears to be removed at this time. Addendum: 02/24/20 at 234 by Magali Estes RN 2344 -- patient TR band removed, site cleaned with chloraprep, dressed with sterile gauze and tegaderm. Patient instructed to be gentle with wrist/hand. No pressing down on right wrist in bed to move/sit up. Site looks good, no hematoma, no bruising noted, no bleeding noted, pulse present, sensation to fingers normal. Patient potassium replacement started at this time as well.
[2020-02-24 23:04] LABS: ALBUMIN 2.4 G/DL (3.4-5.0); ANION GAP 3 (8-16); BLOOD UREA NITROGEN 30 MG/DL (7-18); BUN/CREATININE RATIO 19.5 (5.4-32.0); CALCIUM 7.8 MG/DL (8.5-10.1); CHLORIDE 102 MMOL/L (99-107); CREATININE 1.54 MG/DL (0.60-1.10); GLUCOSE 96 MG/DL (70-104); PHOSPHORUS 3.1 MG/DL (2.3-4.5); POTASSIUM 3.2 MMOL/L (3.5-5.1); SODIUM 142 MMOL/L (135-145); TOTAL CARBON DIOXIDE 37.4 MMOL/L (24-32); eGFR 47 ML/MIN
[2020-02-24] MEDS: potassium Cl 20 mEq SR tablet PO PRN (23:45)
[2020-02-25] VITALS (19 sets, daily range): BP systolic 80–130; BP diastolic 51–94
[2020-02-25] MEDS: ipratropium/albuterol 3ml nebule NEB SCH ×3 (03:00→19:57)
[2020-02-25] MEDS: potassium Cl 20 mEq SR tablet PO PRN ×2 (03:41→07:33)
[2020-02-25] MEDS: amiodarone/D5 360MG/200ML BAG 200 ML IV SCH ×4 (04:41→19:43)
[2020-02-25 05:38] LABS: ALANINE AMINOTRANSFERASE 362 U/L (12-78); ALBUMIN 2.4 G/DL (3.4-5.0); ALBUMIN/GLOBULIN RATIO 0.9 (1.1-1.5); ALKALINE PHOSPHATASE 55 IU/L (46-116); ANION GAP 2 (8-16); ASPARTATE AMINO TRANSFERASE 63 U/L (10-37); BILIRUBIN,TOTAL 0.9 MG/DL (0.1-1.0); BLOOD UREA NITROGEN 28 MG/DL (7-18); BUN/CREATININE RATIO 19.3 (5.4-32.0); CHLORIDE 103 MMOL/L (99-107); CREATININE 1.45 MG/DL (0.60-1.10); GLUCOSE 82 MG/DL (70-104); MAGNESIUM 1.5 MG/DL (1.5-2.4); POTASSIUM 3.3 MMOL/L (3.5-5.1); SODIUM 142 MMOL/L (135-145); TOTAL CARBON DIOXIDE 36.6 MMOL/L (24-32); eGFR 51 ML/MIN
[2020-02-25] MEDS: pantoprazole 40mg Tablet.DR PO SCH (07:32)
[2020-02-25] MEDS: thiamine 100mg tablet PO SCH ×2 (07:32→19:43)
[2020-02-25] MEDS: levoTHYROXINE 100mcg tablet PO SCH (07:32)
[2020-02-25] MEDS: docusate sodium 100mg/10ml UD cup PO SCH ×2 (07:33→19:43)
[2020-02-25] MEDS: multivitamins, therapeutics tablet PO SCH (07:34)
[2020-02-25] MEDS: carvedilol 6.25mg tablet PO SCH ×2 (07:34→19:44)
[2020-02-25] MEDS: digoxin 125mcg (0.125mg) tablet PO SCH (07:34)
[2020-02-25] MEDS: fluticasone nasal spray 16GM bottle NS SCH (07:34)
[2020-02-25] MEDS: K, MAG and/or Phos replacement - Verify level? MC SCH (07:34)
[2020-02-25] MEDS: lactobacillus rhamnosus 10,000 MMU CELLS/CAPSULE OGT SCH ×2 (07:34→19:43)
[2020-02-25 08:00] LABS: BASOPHILS % (AUTO) 0.3 % (0-1); EOSINOPHILS # (AUTO) 0.1 X10'3 (0-0.9); EOSINOPHILS % (AUTO) 0.5 % (0-6); HEMATOCRIT 43.8 % (42.0-52.0); HEMOGLOBIN 14.7 g/dl (14.0-17.9); LYMPHOCYTES # (AUTO) 1.5 X10'3 (1.1-4.8); LYMPHOCYTES % (AUTO) 13.1 % (21-51); MEAN CORPUSCULAR HEMOGLOBIN 33.8 PG (27.0-31.0); MEAN CORPUSCULAR HGB CONC 33.7 g/dL (33.0-36.5); MEAN CORPUSCULAR VOLUME 100.4 FL (78-98); MEAN PLATELET VOLUME 8.9 FL (7.4-10.4); MONOCYTES # (AUTO) 1.4 X10'3 (0-0.9); MONOCYTES % (AUTO) 12.3 % (2-12); NEUTROPHILS # (AUTO) 8.2 X10'3 (1.8-7.7); NEUTROPHILS % (AUTO) 73.8 % (42-75); PLATELET COUNT 150 X10'3 (140-440); RED BLOOD COUNT 4.36 X10'6 (4.70-6.10); RED CELL DISTRIBUTION WIDTH 15.2 % (11.5-14.5); WHITE BLOOD COUNT 11.1 X10'3 (4.5-11.0)
[2020-02-25] MEDS ORDERED: lisinopril 2.5mg tablet PO SCH (08:00)
[2020-02-25] MEDS: furosemide inj 1,000 MG in normal saline 250ml IV soln 150 ML IV SCH (10:45)
--- NOTE | 2020-02-25 13:53 | NUR ---
Patient in room ICU 2039. I have received report from Carmela VASQUEZ and had the opportunity to ask questions and assume patient care.
--- NOTE | 2020-02-25 18:29 | NUR ---
Problems reprioritized. Patient report given, questions answered & plan of care reviewed with Leena VASQUEZ.
[2020-02-25] MEDS: traZODone 50mg tablet PO SCH (19:43)
[2020-02-25] MEDS ORDERED: furosemide 40mg tablet PO SCH (20:00)
[2020-02-26 02:59] VITALS: BP 111/73
[2020-02-26] MEDS: ipratropium/albuterol 3ml nebule NEB SCH ×2 (03:01→08:21)
[2020-02-26 03:55] LABS: ALANINE AMINOTRANSFERASE 322 U/L (12-78); ALBUMIN 2.5 G/DL (3.4-5.0); ALBUMIN/GLOBULIN RATIO 0.9 (1.1-1.5); ALKALINE PHOSPHATASE 66 IU/L (46-116); ANION GAP 4 (8-16); ASPARTATE AMINO TRANSFERASE 66 U/L (10-37); BILIRUBIN,TOTAL 1.2 MG/DL (0.1-1.0); BLOOD UREA NITROGEN 27 MG/DL (7-18); BUN/CREATININE RATIO 20.6 (5.4-32.0); CALCIUM 7.9 MG/DL (8.5-10.1); CHLORIDE 103 MMOL/L (99-107); CREATININE 1.31 MG/DL (0.60-1.10); GLUCOSE 91 MG/DL (70-104); MAGNESIUM 1.6 MG/DL (1.5-2.4); PHOSPHORUS 2.5 MG/DL (2.3-4.5); POTASSIUM 3.6 MMOL/L (3.5-5.1); SODIUM 142 MMOL/L (135-145); TOTAL CARBON DIOXIDE 35.4 MMOL/L (24-32); TOTAL PROTEIN 5.2 G/DL (6.4-8.2); eGFR 57 ML/MIN
[2020-02-26 03:59] VITALS: BP 109/77
[2020-02-26 04:59] VITALS: BP 117/91
[2020-02-26] MEDS: amiodarone/D5 360MG/200ML BAG 200 ML IV SCH (05:26)
--- NOTE | 2020-02-26 06:23 | NUR ---
Patient in room PCU 3015. I have received report from Leena VASQUEZ and had the opportunity to ask questions and assume patient care.
--- NOTE | 2020-02-26 06:33 | NUR ---
report given to PEDRO ESPITIA, QUESTIONS ANSWERED. NO ACUTE DISTRESS
[2020-02-26 07:00] VITALS: BP 131/85
[2020-02-26] MEDS ORDERED: levoTHYROXINE 175mcg tablet PO SCH (08:00)
--- NOTE | 2020-02-26 08:00 | NUR ---
Patient refusing care, assessments, and medications. Education provided and patient is still non-compliant. Will continuously re-assess
--- NOTE | 2020-02-26 09:12 | NUR ---
Page sent to Dr. Joseph: PAGER ID: [phone] MESSAGE: [id number] Xiang Chang: Patient is increasingly agitated, I walked in room to find he pulled PICC and IV. Wont let us examine him and wants to leave. Fabiola [phone]
--- NOTE | 2020-02-26 09:21 | NUR ---
Patient observed walking out of hospital room fully clothed, without IV pole/pump and monitor. Upon communication with RN, patient stated "I just want to go home and see my " RN tried to assess patient for bleeding after patient had pulled PICC line, patient stated "no don't fjennifer touch me!" RN kept distance from aggressive patient while completing neuro check, patient passed all questions and is alert and oriented. RN provided information about risks and benefits of leaving against medical advice and patient continued to walk towards the elevator. Refused to take belongings, left wearing socks. Security escorted patient out.
== END 2020-02-26 09:40 | disposition left against medical advice (07) | DRG 190 ==
LOC: ER 12:32 → ED HOLD 17:43 → ICU 2S 21:17 → PCU 3S 02-25 15:20
PROVIDERS: ADMIT Internal Medicine Critical Care Medicine; ATTEND Internal Medicine Critical Care Medicine
PROC: 04HY32Z Insertion of Monitoring Device into Lower Artery, Percutaneous Approach (ICD-10-PCS; principal; 2020-02-16)
PROC: 4A133B1 Monitoring of Arterial Pressure, Peripheral, Percutaneous Approach (ICD-10-PCS; 2020-02-16)
PROC: 4A133J1 Monitoring of Arterial Pulse, Peripheral, Percutaneous Approach (ICD-10-PCS; 2020-02-16)
PROC: 5A1945Z Respiratory Ventilation, 24-96 Consecutive Hours (ICD-10-PCS; 2020-02-16)
PROC: 0BH17EZ Insertion of Endotracheal Airway into Trachea, Via Natural or Artificial Opening (ICD-10-PCS; 2020-02-16)
PROC: 4A023N7 Measurement of Cardiac Sampling and Pressure, Left Heart, Percutaneous Approach (ICD-10-PCS; 2020-02-24)
PROC: B2111ZZ Fluoroscopy of Multiple Coronary Arteries using Low Osmolar Contrast (ICD-10-PCS; 2020-02-24)
PROC: B2151ZZ Fluoroscopy of Left Heart using Low Osmolar Contrast (ICD-10-PCS; 2020-02-24)
DX: I21.4 Non-ST elevation (NSTEMI) myocardial infarction (principal); Z20.822 Contact with and (suspected) exposure to COVID-19; Z53.29 Procedure and treatment not carried out because of patient's decision for other reasons; I48.91 Unspecified atrial fibrillation; E03.9 Hypothyroidism, unspecified; G47.00 Insomnia, unspecified; R74.01 Elevation of levels of liver transaminase levels; D72.829 Elevated white blood cell count, unspecified; I50.9 Heart failure, unspecified; J96.00 Acute respiratory failure, unspecified whether with hypoxia or hypercapnia; N17.9 Acute kidney failure, unspecified; K72.00 Acute and subacute hepatic failure without coma; R57.9 Shock, unspecified; E87.2 Acidosis; F32.9 Major depressive disorder, single episode, unspecified; I42.0 Dilated cardiomyopathy
CPT/HCPCS: 36415; 36573; 36600; 71045; 71250; 74176; 80053; 80069; 80305; 81001; 82550; 82570; 82803; 82948; 83605; 83735; 83880; 84100; 84134; 84145; 84156; 84300; 84439; 84443; 84480; 84484; 85007; 85018; 85025; 85027; 85610; 85651; 85730; 86803; 87040; 87070; 87081; 87088; 87207; 87340; 87635; 92508; 92616; 93005; 93306; 93308; 93458; 94002; 94003; 94640; 94760; 94799; 96374; 96375; 97110; 97116; 97163; 97530; 99152; 99285; A4620; A5120; A6258; C1769; C1894; G0378; J0696; J1160; J1644; J1815; J1940; J2001; J2060; J2250; J2270; J2405; J3010; J3490; J7030; J7050; Q9967

== ENCOUNTER 2020-03-12 12:02 | Inpatient (IN) | payer MEDICAID ==
[~2020-03-12] VITALS: Ht 182.9 cm; Wt 93.5 kg
[~2020-03-12 12:02] MED LIST changes: -LEVO100T9 PO; -TRAZ-251 PO; +[UNRECOGNIZED DRUG - CODE] PO; -rocuronium 10mg/ml inj IV ONE
[2020-03-12 12:26] LABS: BASOPHILS # (AUTO) 0.1 X10'3 (0-0.2); BASOPHILS % (AUTO) 1.4 % (0-1); EOSINOPHILS # (AUTO) 0.1 X10'3 (0-0.9); EOSINOPHILS % (AUTO) 1.6 % (0-6); HEMATOCRIT 39.7 % (42.0-52.0); HEMOGLOBIN 13.1 g/dl (14.0-17.9); LYMPHOCYTES # (AUTO) 1.5 X10'3 (1.1-4.8); LYMPHOCYTES % (AUTO) 19.9 % (21-51); MEAN CORPUSCULAR HEMOGLOBIN 34.3 PG (27.0-31.0); MEAN CORPUSCULAR HGB CONC 33.1 g/dL (33.0-36.5); MEAN CORPUSCULAR VOLUME 103.8 FL (78-98); MEAN PLATELET VOLUME 8.5 FL (7.4-10.4); MONOCYTES # (AUTO) 0.5 X10'3 (0-0.9); NEUTROPHILS # (AUTO) 5.4 X10'3 (1.8-7.7); NEUTROPHILS % (AUTO) 70.1 % (42-75); PLATELET COUNT 262 X10'3 (140-440); RED BLOOD COUNT 3.82 X10'6 (4.70-6.10); RED CELL DISTRIBUTION WIDTH 16.8 % (11.5-14.5); WHITE BLOOD COUNT 7.7 X10'3 (4.5-11.0)
--- NOTE | 2020-03-12 12:39 | NUR ---
Pt gave verbal consent to update Corrine on current status which was done.
[2020-03-12 12:41] LABS: ALANINE AMINOTRANSFERASE 73 U/L (12-78); ALBUMIN 3.2 G/DL (3.4-5.0); ALKALINE PHOSPHATASE 73 IU/L (46-116); ANION GAP 7 (8-16); ASPARTATE AMINO TRANSFERASE 38 U/L (10-37); BILIRUBIN,TOTAL 1.1 MG/DL (0.1-1.0); BLOOD UREA NITROGEN 29 MG/DL (7-18); BUN/CREATININE RATIO 23.8 (5.4-32.0); CALCIUM 9.1 MG/DL (8.5-10.1); CHLORIDE 106 MMOL/L (99-107); CREATININE 1.22 MG/DL (0.60-1.10); GLUCOSE 112 MG/DL (70-104); POTASSIUM 5.2 MMOL/L (3.5-5.1); SODIUM 140 MMOL/L (135-145); TOTAL CARBON DIOXIDE 27.4 MMOL/L (24-32); TOTAL PROTEIN 6.4 G/DL (6.4-8.2); eGFR 62 ML/MIN
--- NOTE | 2020-03-12 12:55 | NUR ---
discussed pt's c/o anxiety and his subsequent discussion w/ his therapist about starting ativan w/ schuyler elder, who order ativan once.
[2020-03-12] MEDS ORDERED: LORazepam 1 MG tablet PO ONE (13:15)
[2020-03-12] MEDS ORDERED: amiodarone 150mg/dext, iso-os 100 ML IV ONE (14:00)
[2020-03-12] MEDS ORDERED: APIX5TAB3 PO (14:23)
[2020-03-12] MEDS ORDERED: TRAZ-251 PO (14:23)
[2020-03-12] MEDS ORDERED: CARV-50 PO (14:23)
[2020-03-12] MEDS ORDERED: SPIR25TA5 PO (14:23)
[2020-03-12] MEDS ORDERED: LORA-269 PO (14:27)
--- NOTE | 2020-03-12 14:43 | NUR ---
Pharmacist Chrissy completed med rec w/ pt.
[2020-03-12] MEDS ORDERED: magnesium Cl slow-release 64mg tablet PO PRN (15:35)
[2020-03-12] MEDS ORDERED: magnesium 4gm in 100ml NS 100 ML IV PRN (15:35)
[2020-03-12] MEDS ORDERED: potassium Cl 40MEQ/1/2NS 520ml 520 ML IV PRN ×2 (15:35)
[2020-03-12] MEDS ORDERED: ondansetron/PF 4mg/2ml inj IV PRN (15:35)
[2020-03-12] MEDS ORDERED: magnesium 2GM in 50ml NS 50 ML IV PRN (15:35)
[2020-03-12] MEDS ORDERED: morphine 2 MG/ML inj. syringe IV PRN (15:35)
[2020-03-12] MEDS ORDERED: potassium Cl 20 mEq SR tablet PO PRN ×2 (15:35)
[2020-03-12] MEDS: spironolactone 25 MG tablet PO SCH (16:15)
[2020-03-12] MEDS ORDERED: LORazepam 0.5 MG tablet PO PRN (16:15)
--- NOTE | 2020-03-12 17:04 | NUR ---
received report from Avis VASQUEZ. Had opportunity to ask questions concerning Pt care and plan. Awaiting arrival of Pt to room 0096N.
--- NOTE | 2020-03-12 17:07 | NUR ---
vascular us underway
--- NOTE | 2020-03-12 17:39 | NUR ---
PAGER ID: [phone] MESSAGE: Re: Xiang Chang. Room: [facility]. Pt's heart rate sustaining in the 130's A-fib. Do you want to add any medications? -Fernando [facility] #[phone] Dr. Lemus paged concerning Pt's HR.
--- NOTE | 2020-03-12 17:48 | NUR ---
Pt arrived to room 3012C. Pt alert and oriented. Vitals: HR 133, 97% RA, 117/89, RR 17, 97.8. Will continue to monitor Pt.
[2020-03-12 17:50] VITALS: BP 117/89
[2020-03-12] MEDS ORDERED: metoprolol tartrate 1mg/ml inj IV ONE (17:55)
[2020-03-12 18:00] VITALS: BP 119/82
--- NOTE | 2020-03-12 18:30 | NUR ---
Patient in room PCU 3012. I have received report from Fernando VASQUEZ and had the opportunity to ask questions and assume patient care.
--- NOTE | 2020-03-12 18:49 | NUR ---
Problems reprioritized. Patient report given, questions answered & plan of care reviewed with Dajuan VASQUEZ.
[2020-03-12] MEDS: K and/or MAG REPLACEMENT MC SCH (20:00)
[2020-03-12] MEDS: furosemide 40mg/4ml inj IV SCH (20:38)
[2020-03-12] MEDS: docusate sod 100mg capsule PO SCH (20:39)
[2020-03-12] MEDS: apixaban 5mg tablet PO SCH (20:39)
[2020-03-12] MEDS: carVEDilol 12.5mg tablet PO SCH (20:40)
[2020-03-12] MEDS ORDERED: traZODone 50mg tablet PO SCH (21:00)
[2020-03-12 22:00] VITALS: BP 122/85
[2020-03-13 02:00] VITALS: BP 122/85
[2020-03-13 06:00] VITALS: BP 133/75
[2020-03-13 06:17] LABS: BASOPHILS # (AUTO) 0.1 X10'3 (0-0.2); BASOPHILS % (AUTO) 1.3 % (0-1); EOSINOPHILS # (AUTO) 0.1 X10'3 (0-0.9); EOSINOPHILS % (AUTO) 1.8 % (0-6); HEMATOCRIT 37.1 % (42.0-52.0); HEMOGLOBIN 12.3 g/dl (14.0-17.9); LYMPHOCYTES % (AUTO) 25.2 % (21-51); MEAN CORPUSCULAR HEMOGLOBIN 34.1 PG (27.0-31.0); MEAN CORPUSCULAR HGB CONC 33.2 g/dL (33.0-36.5); MEAN CORPUSCULAR VOLUME 102.9 FL (78-98); MEAN PLATELET VOLUME 8.7 FL (7.4-10.4); MONOCYTES # (AUTO) 0.7 X10'3 (0-0.9); MONOCYTES % (AUTO) 8.5 % (2-12); NEUTROPHILS % (AUTO) 63.2 % (42-75); PLATELET COUNT 247 X10'3 (140-440); RED BLOOD COUNT 3.61 X10'6 (4.70-6.10); RED CELL DISTRIBUTION WIDTH 16.1 % (11.5-14.5); WHITE BLOOD COUNT 7.9 X10'3 (4.5-11.0)
--- NOTE | 2020-03-13 06:19 | NUR ---
Problems reprioritized. Patient report given, questions answered & plan of care reviewed with Ino VASQUEZ.
[2020-03-13 06:37] LABS: ALBUMIN 2.8 G/DL (3.4-5.0); ANION GAP 6 (8-16); CALCIUM 8.5 MG/DL (8.5-10.1); CHLORIDE 107 MMOL/L (99-107); CHOL/HDL RATIO 5.4 (0.00-4.99); CHOLESTEROL 140 MG/DL (0-200); CREATININE 1.29 MG/DL (0.60-1.10); GLUCOSE 87 MG/DL (70-104); HDL CHOLESTEROL 26 MG/DL (35-60); LDL CHOLESTEROL 92 MG/DL (50-100); MAGNESIUM 1.9 MG/DL (1.5-2.4); POTASSIUM 4.3 MMOL/L (3.5-5.1); SODIUM 143 MMOL/L (135-145); TOTAL CARBON DIOXIDE 29.7 MMOL/L (24-32); TRIGLYCERIDES 132 MG/DL (20-135); eGFR 58 ML/MIN
[2020-03-13 07:12] LABS: BLOOD UREA NITROGEN 29 MG/DL (7-18); BUN/CREATININE RATIO 22.5 (5.4-32.0)
[2020-03-13] MEDS ORDERED: levoTHYROXINE 100mcg tablet PO SCH (08:00)
[2020-03-13] MEDS: apixaban 5mg tablet PO SCH (09:14)
[2020-03-13] MEDS: furosemide 40mg/4ml inj IV SCH (09:16)
[2020-03-13] MEDS: spironolactone 25 MG tablet PO SCH (09:16)
[2020-03-13] MEDS: docusate sod 100mg capsule PO SCH (09:16)
[2020-03-13] MEDS: K and/or MAG REPLACEMENT MC SCH (09:17)
[2020-03-13] MEDS: carVEDilol 12.5mg tablet PO SCH (09:23)
[2020-03-13 11:11] VITALS: BP 111/79
[2020-03-13] MEDS ORDERED: CARV-50 PO (14:24)
[2020-03-13 15:00] VITALS: BP 106/77
[2020-03-13] MEDS ORDERED: FURO-150 PO (15:45)
--- NOTE | 2020-03-13 18:07 | NUR ---
furosemide and carvedolol called into tran young
== END 2020-03-13 18:15 | disposition home or self-care (01) | DRG 201 ==
LOC: ER 12:02 → ED HOLD 15:35 → PCU 3S 17:41
PROVIDERS: ADMIT Internal Medicine; ATTEND Internal Medicine
DX: I48.91 Unspecified atrial fibrillation (principal); E03.9 Hypothyroidism, unspecified; G47.00 Insomnia, unspecified; I50.23 Acute on chronic systolic (congestive) heart failure; F32.9 Major depressive disorder, single episode, unspecified; F41.9 Anxiety disorder, unspecified; Z79.01 Long term (current) use of anticoagulants; Z79.899 Other long term (current) drug therapy
CPT/HCPCS: 36415; 71045; 80048; 80053; 80061; 83735; 83880; 84484; 85025; 87081; 93005; 93922; 96365; 99285; G0378; J1940; J3490

== ENCOUNTER 2020-06-01 14:49 | Day surgery (SDC) | payer MEDICAID ==
[~2020-06-01] VITALS: Ht 182.9 cm; Wt 91.1 kg
[2020-06-01] VITALS (17 sets, daily range): BP systolic 83–152; BP diastolic 47–97
[~2020-06-01 14:49] MED LIST changes: +APIX5TAB3 PO; +CARV-50 PO; -FLUT16SP2 BOTHNARES; +FURO-150 PO; +LORA-269 PO; +SPIR25TA5 PO; +TRAZ-251 PO
[2020-06-01] MEDS ORDERED: normal saline 1000ml 1,000 ML IV SCH (15:45)
[2020-06-01] MEDS ORDERED: MIDAZolam 1mg/ml 10ml vial IV ONE (15:45)
[2020-06-01] MEDS ORDERED: fentaNYL/PF 50MCG/1 ML 2ML syringe IV ONE (15:45)
[2020-06-01] MEDS ORDERED: LORA10CA PO (17:25)
[2020-06-01] MEDS ORDERED: FLUT16SP2 BOTHNARES (17:25)
[2020-06-01] MEDS ORDERED: FURO-149 PO (17:25)
[2020-06-01] MEDS ORDERED: GUAI600T45 PO (17:25)
[2020-06-01] MEDS ORDERED: CARV25TA2 PO (17:25)
[2020-06-01] MEDS ORDERED: AMIO200T27 PO (17:25)
[2020-06-01] MEDS ORDERED: SACU1TAB7 PO (17:25)
[2020-06-01] MEDS ORDERED: pneumococcal 23-VAL P-sac vacc 25 mcg/0.5ml vial IMVAC ONE (18:00)
== END 2020-06-01 18:44 | disposition home or self-care (01) ==
LOC: SSTAY O 14:49
PROVIDERS: ATTEND Internal Medicine Interventional Cardiology
DX: I48.91 Unspecified atrial fibrillation (principal); G47.33 Obstructive sleep apnea (adult) (pediatric); I25.2 Old myocardial infarction; I50.20 Unspecified systolic (congestive) heart failure; I42.0 Dilated cardiomyopathy; E03.9 Hypothyroidism, unspecified; Z79.01 Long term (current) use of anticoagulants; Z79.899 Other long term (current) drug therapy; Z23 Encounter for immunization
CPT/HCPCS: 90471; 90732; 92960; 93005; 94799; J2250; J3010; J7030

== ENCOUNTER 2020-06-16 20:08 | Emergency (ER) | payer MEDICAID ==
[~2020-06-16] VITALS: Ht 182.9 cm; Wt 86.3 kg
[~2020-06-16 20:08] MED LIST changes: +AMIO200T27 PO; -CARV-50 PO; +CARV25TA2 PO; +FLUT16SP2 BOTHNARES; +FURO-149 PO; -FURO-150 PO; +GUAI600T45 PO; +LORA10CA PO; +SACU1TAB7 PO
--- NOTE | 2020-06-16 20:47 | NUR ---
Pt presents d/t tachycardia, Afib. Lifevest in place upon arrival. Pt AAOx4, no s/sx of acute distress noted at this time. Respirations even, unlabored. Will continue to monitor.
[2020-06-16 20:57] LABS: BASOPHILS # (AUTO) 0.1 X10'3 (0-0.2); BASOPHILS % (AUTO) 1.3 % (0-1); EOSINOPHILS # (AUTO) 0.2 X10'3 (0-0.9); EOSINOPHILS % (AUTO) 2.5 % (0-6); HEMATOCRIT 43.6 % (42.0-52.0); HEMOGLOBIN 14.5 g/dl (14.0-17.9); LYMPHOCYTES # (AUTO) 2.2 X10'3 (1.1-4.8); LYMPHOCYTES % (AUTO) 27.2 % (21-51); MEAN CORPUSCULAR HEMOGLOBIN 33.1 PG (27.0-31.0); MEAN CORPUSCULAR HGB CONC 33.3 g/dL (33.0-36.5); MEAN CORPUSCULAR VOLUME 99.6 FL (78-98); MEAN PLATELET VOLUME 8.8 FL (7.4-10.4); MONOCYTES # (AUTO) 0.8 X10'3 (0-0.9); MONOCYTES % (AUTO) 9.7 % (2-12); NEUTROPHILS # (AUTO) 4.7 X10'3 (1.8-7.7); NEUTROPHILS % (AUTO) 59.3 % (42-75); PLATELET COUNT 201 X10'3 (140-440); RED BLOOD COUNT 4.38 X10'6 (4.70-6.10); RED CELL DISTRIBUTION WIDTH 13.6 % (11.5-14.5); WHITE BLOOD COUNT 7.9 X10'3 (4.5-11.0)
[2020-06-16 21:01] LABS: ALANINE AMINOTRANSFERASE 44 U/L (12-78); ALBUMIN 3.9 G/DL (3.4-5.0); ALBUMIN/GLOBULIN RATIO 1.3 (1.1-1.5); ALKALINE PHOSPHATASE 40 IU/L (46-116); ANION GAP 9 (8-16); ASPARTATE AMINO TRANSFERASE 36 U/L (10-37); BILIRUBIN,TOTAL 0.5 MG/DL (0.1-1.0); BLOOD UREA NITROGEN 22 MG/DL (7-18); BUN/CREATININE RATIO 16.8 (5.4-32.0); CALCIUM 9.1 MG/DL (8.5-10.1); CHLORIDE 106 MMOL/L (99-107); CREATININE 1.31 MG/DL (0.60-1.10); GLUCOSE 134 MG/DL (70-104); POTASSIUM 3.8 MMOL/L (3.5-5.1); SODIUM 144 MMOL/L (135-145); TOTAL CARBON DIOXIDE 28.8 MMOL/L (24-32); TOTAL PROTEIN 6.8 G/DL (6.4-8.2); eGFR 57 ML/MIN
[2020-06-16 21:08] LABS: TROPONIN I 0.04 NG/ML (0.0-0.05)
[2020-06-16 21:57] VITALS: BP 138/95
== END 2020-06-16 22:29 | disposition home or self-care (01) ==
LOC: ER 20:09
DX: I48.91 Unspecified atrial fibrillation (principal); I50.9 Heart failure, unspecified; E03.9 Hypothyroidism, unspecified; F41.9 Anxiety disorder, unspecified; G47.00 Insomnia, unspecified; Z79.01 Long term (current) use of anticoagulants; Z79.899 Other long term (current) drug therapy
CPT/HCPCS: 36415; 71045; 80053; 83880; 84484; 85025; 93005; 99285

== ENCOUNTER 2021-05-01 11:40 | Emergency (ER) | payer MEDICAID ==
[~2021-05-01] VITALS: Ht 182.9 cm; Wt 100.0 kg
[2021-05-01] MEDS ORDERED: SOTROVIMAB 500mg injection 500 MG in normal saline 100ml IV soln 100 ML IV ONE (14:50)
[2021-05-01 16:13] VITALS: BP 112/71
== END 2021-05-01 16:16 | disposition home or self-care (01) ==
LOC: ER 11:40
DX: U07.1 COVID-19 (principal); I11.9 Hypertensive heart disease without heart failure; F41.9 Anxiety disorder, unspecified; F32.9 Major depressive disorder, single episode, unspecified; Z79.899 Other long term (current) drug therapy
CPT/HCPCS: 71045; 87635; 93005; 99285; C9803; J3490; M0247; Q0247

== ENCOUNTER 2021-12-03 14:09 | Outpatient (CLI) | payer MEDICAID | END 2021-12-03 23:59 | disposition home or self-care (01) | LOC: RT 14:09 | PROVIDERS: ATTEND Internal Medicine Interventional Cardiology | DX: I48.91 Unspecified atrial fibrillation (principal); I50.9 Heart failure, unspecified; R06.02 Shortness of breath; Z79.899 Other long term (current) drug therapy | CPT/HCPCS: 71046; 94010; 94729 ==

== ENCOUNTER 2023-06-23 07:30 | Emergency (ER) | payer MEDICAID ==
[~2023-06-23] VITALS: Ht 182.9 cm; Wt 85.5 kg
[2023-06-23 07:32] VITALS: TEMP 98.3
[2023-06-23] MEDS ORDERED: DAPA10TA PO (07:40)
[2023-06-23] MEDS ORDERED: SACU1TAB PO (07:40)
[2023-06-23] MEDS ORDERED: AMI200T PO (07:40)
[2023-06-23] MEDS ORDERED: LEVO175T7 PO (07:40)
[2023-06-23 08:24] LABS: BASOPHILS % (AUTO) 0.7 % (0-1); EOSINOPHILS # (AUTO) 0.1 X10'3 (0-0.9); EOSINOPHILS % (AUTO) 1.4 % (0-6); HEMATOCRIT 47.9 % (42.0-52.0); HEMOGLOBIN 16.1 g/dl (14.0-17.9); LYMPHOCYTES # (AUTO) 0.6 X10'3 (1.1-4.8); LYMPHOCYTES % (AUTO) 17.3 % (21-51); MEAN CORPUSCULAR HEMOGLOBIN 32.8 PG (27.0-31.0); MEAN CORPUSCULAR HGB CONC 33.7 g/dL (33.0-36.5); MEAN CORPUSCULAR VOLUME 97.4 FL (78-98); MEAN PLATELET VOLUME 8.3 FL (7.4-10.4); MONOCYTES # (AUTO) 0.9 X10'3 (0-0.9); MONOCYTES % (AUTO) 25.1 % (2-12); NEUTROPHILS # (AUTO) 2.1 X10'3 (1.8-7.7); NEUTROPHILS % (AUTO) 55.5 % (42-75); PLATELET COUNT 181 X10'3 (140-440); RED BLOOD COUNT 4.92 X10'6 (4.70-6.10); RED CELL DISTRIBUTION WIDTH 14.1 % (11.5-14.5); WHITE BLOOD COUNT 3.7 X10'3 (4.5-11.0)
[2023-06-23 08:40] LABS: ANION GAP 6 (8-16); BILIRUBIN,TOTAL 0.4 MG/DL (0.1-1.0); BLOOD UREA NITROGEN 13 MG/DL (7-18); BUN/CREATININE RATIO 11.5 (10.0-20.0); CALCIUM 8.9 MG/DL (8.5-10.1); CHLORIDE 104 MMOL/L (99-107); CREATININE 1.13 MG/DL (0.60-1.10); GLUCOSE 123 MG/DL (70-104); POTASSIUM 4.2 MMOL/L (3.5-5.1); SODIUM 136 MMOL/L (135-145); TOTAL CARBON DIOXIDE 26.1 MMOL/L (24-32); TOTAL PROTEIN 7.1 G/DL (6.4-8.2); eCRCL 77 ML/MIN; eGFR 66 ML/MIN
[2023-06-23 08:41] LABS: ALANINE AMINOTRANSFERASE 39 U/L (12-78); ALBUMIN 3.5 G/DL (3.4-5.0); ALKALINE PHOSPHATASE 38 IU/L (46-116); ASPARTATE AMINO TRANSFERASE 24 U/L (10-37); LIPASE 142 U/L (16-77)
[2023-06-23 09:34] LABS: PLATELET ESTIMATE NORMAL; TOTAL CELLS COUNTED 100
[2023-06-23] MEDS ORDERED: iohexol 300mg/ml 100ml inj. ONE (12:26)
[2023-06-23 14:04] LABS: BILIRUBIN,URINE NEGATIVE (Neg); CLARITY,URINE CLEAR (Clear); COLOR,URINE YELLOW (Yellow); GLUCOSE, URINE NEGATIVE (Neg); KETONES,URINE NEGATIVE (Neg); LEUKOCYTE ESTERASE ,URINE NEGATIVE (Neg); NITRITES, URINE NEGATIVE (Neg); OCCULT BLOOD,URINE NEGATIVE (Neg); PROTEIN,URINE NEGATIVE (Neg); UROBILINOGEN,URINE 0.2 E.U/dL (0.2-1.0)
[2023-06-23 14:06] LABS: UA COLLECTION TYPE NON-SPECIFIED
[2023-06-23 14:31] LABS: OCCULT BLOOD STOOL POSITIVE (Neg)
[2023-06-23] MEDS ORDERED: METR-159 PO (14:41)
[2023-06-23 15:03] LABS: C DIFF ANTIGEN NEGATIVE (NEGATIVE); C DIFF SPECIMEN=DIARRHEA? ACCEPTABLE; C DIFFICILE TOXINS A&B NEGATIVE (Neg)
[2023-06-23] MEDS: normal saline 1000ml 1,000 ML IV ONE (15:20)
[2023-06-23 16:06] VITALS: BP 108/74; PULSE 75; RESP 16; O2SAT 99
== END 2023-06-23 16:04 | disposition home or self-care (01) ==
LOC: ER 07:31
DX: R19.7 Diarrhea, unspecified (principal); D72.825 Bandemia; D72.819 Decreased white blood cell count, unspecified; K62.5 Hemorrhage of anus and rectum; I50.9 Heart failure, unspecified; E03.9 Hypothyroidism, unspecified; Z79.899 Other long term (current) drug therapy
CPT/HCPCS: 36415; 74177; 80053; 81003; 82272; 83605; 83690; 83735; 84145; 85007; 85025; 87040; 87045; 87046; 87324; 87449; 89055; 96360; 99285; J3490; J7030; Q9967

== ENCOUNTER 2023-07-10 11:00 | Day surgery (SDC) | payer MEDICAID ==
[~2023-07-10] VITALS: Ht 182.9 cm; Wt 88.4 kg
[2023-07-10] VITALS (10 sets, daily range): BP systolic 91–125; BP diastolic 54–92; PULSE 60–75; RESP 13–18; TEMP 98; O2SAT 95–100
[~2023-07-10 11:00] MED LIST changes: +AMI200T PO; -AMIO200T27 PO; +DAPA10TA PO; -FURO-149 PO; -GUAI600T45 PO; +LEVO175T7 PO; -LORA-269 PO; +METR-159 PO; +SACU1TAB PO; -SACU1TAB7 PO; -[UNRECOGNIZED DRUG - CODE] PO
[2023-07-10] MEDS ORDERED: normal saline 1000ml 1,000 ML IV SCH (11:25)
[2023-07-10 12:39] LABS: HEMOGLOBIN 14.8 g/dl (14.0-17.9); LYMPHOCYTES # (AUTO) 1.1 X10'3 (1.1-4.8); MEAN CORPUSCULAR HEMOGLOBIN 33.1 PG (27.0-31.0); MEAN PLATELET VOLUME 8.2 FL (7.4-10.4); MONOCYTES # (AUTO) 0.7 X10'3 (0-0.9); WHITE BLOOD COUNT 3.8 X10'3 (4.5-11.0)
[2023-07-10 12:41] LABS: APTT 26 SECONDS (22-32); BASOPHILS % (AUTO) 1.3 % (0-1); EOSINOPHILS % (AUTO) 1.3 % (0-6); LYMPHOCYTES % (AUTO) 28.7 % (21-51); MEAN CORPUSCULAR HGB CONC 33.5 g/dL (33.0-36.5); MEAN CORPUSCULAR VOLUME 98.6 FL (78-98); MONOCYTES % (AUTO) 17.2 % (2-12); NEUTROPHILS % (AUTO) 51.5 % (42-75); PLATELET COUNT 217 X10'3 (140-440); PROTHROMBIN TIME 10.9 SECONDS (9.0-12.0); RED BLOOD COUNT 4.46 X10'6 (4.70-6.10); RED CELL DISTRIBUTION WIDTH 14.6 % (11.5-14.5)
[2023-07-10 12:42] LABS: ALBUMIN 3.5 G/DL (3.4-5.0); ANION GAP 8 (8-16); BLOOD UREA NITROGEN 13 MG/DL (7-18); BUN/CREATININE RATIO 14.8 (10.0-20.0); CHLORIDE 105 MMOL/L (99-107); CHOL/HDL RATIO 4.5 (0.00-4.99); CHOLESTEROL 184 MG/DL (0-200); CREATININE 0.88 MG/DL (0.60-1.10); GLUCOSE 91 MG/DL (70-104); HDL CHOLESTEROL 41 MG/DL (35-60); LDL CHOLESTEROL 120 MG/DL (50-100); POTASSIUM 4.4 MMOL/L (3.5-5.1); SODIUM 139 MMOL/L (135-145); TOTAL CARBON DIOXIDE 25.8 MMOL/L (24-32); TRIGLYCERIDES 140 MG/DL (20-135); eCRCL 99 ML/MIN; eGFR 89 ML/MIN
[2023-07-10 12:55] LABS: TOTAL CELLS COUNTED 100
[2023-07-10 12:56] LABS: PLATELET ESTIMATE NORMAL; SMUDGE CELLS FEW; STOMATOCYTES FEW
[2023-07-10] MEDS: fentaNYL/PF 50MCG/1 ML 2ML syringe IV ONE (14:55)
[2023-07-10] MEDS: MIDAZolam 1mg/ml 10ml vial IV ONE (14:55)
== END 2023-07-10 15:10 | disposition home or self-care (01) ==
LOC: SSTAY O 11:00
PROVIDERS: ATTEND Student in an Organized Health Care Education/Training Program
DX: I48.91 Unspecified atrial fibrillation (principal); E03.9 Hypothyroidism, unspecified; I50.20 Unspecified systolic (congestive) heart failure; I42.0 Dilated cardiomyopathy; G47.33 Obstructive sleep apnea (adult) (pediatric); Z79.01 Long term (current) use of anticoagulants; Z79.890 Hormone replacement therapy; Z79.899 Other long term (current) drug therapy
CPT/HCPCS: 80048; 80061; 85025; 85610; 85730; 92960; 93005; J2250; J3010; J7030; 85007

== ENCOUNTER 2024-02-29 10:48 | Inpatient (IN) | payer MEDICAID ==
[2024-02-23 12:44] LABS: BASOPHILS # (AUTO) 0.1 X10'3 (0-0.2); BASOPHILS % (AUTO) 1.5 % (0-1); EOSINOPHILS # (AUTO) 0.2 X10'3 (0-0.9); EOSINOPHILS % (AUTO) 3.5 % (0-6); LYMPHOCYTES # (AUTO) 1.6 X10'3 (1.1-4.8); LYMPHOCYTES % (AUTO) 30.1 % (21-51); MEAN CORPUSCULAR HEMOGLOBIN 31.2 PG (27.0-31.0); MEAN CORPUSCULAR HGB CONC 33.1 g/dL (33.0-36.5); MEAN CORPUSCULAR VOLUME 94.1 FL (78-98); MEAN PLATELET VOLUME 8.2 FL (7.4-10.4); MONOCYTES # (AUTO) 0.7 X10'3 (0-0.9); MONOCYTES % (AUTO) 13.1 % (2-12); NEUTROPHILS # (AUTO) 2.7 X10'3 (1.8-7.7); NEUTROPHILS % (AUTO) 51.8 % (42-75); PRE OP HEMATOCRIT 40.8 % (42.0-52.0); PRE OP HEMOGLOBIN 13.5 g/dL (14.0-17.9); PRE OP PLATELET COUNT 250 X10'3 (140-440); PRE OP WHITE BLOOD COUNT 5.2 10'3 (4.8-10.8); RED BLOOD COUNT 4.33 X10'6 (4.70-6.10); RED CELL DISTRIBUTION WIDTH 13.1 % (11.5-14.5)
[2024-02-23 13:06] LABS: ALBUMIN/GLOBULIN RATIO 1.3 (1.1-1.5); ALKALINE PHOSPHATASE 46 IU/L (46-116); BLOOD UREA NITROGEN 14 MG/DL (7-18); BUN/CREATININE RATIO 14.9 (10.0-20.0); CHLORIDE 105 MMOL/L (99-107); CREATININE 0.94 MG/DL (0.60-1.10); PRE OP ALT 35 U/L (30-65); PRE OP ANION GAP 6 (8-16); PRE OP AST 25 U/L (10-37); PRE OP BILIRUB, TOTAL 0.6 MG/DL (0.0-1.0); PRE OP GLUCOSE 97 MG/DL (70-104); PRE OP POTASSIUM 4.7 MMOL/L (3.4-5.1); PRE OP SODIUM 139 MMOL/L (135-145); TOTAL CARBON DIOXIDE 28.2 MMOL/L (24-32); eGFR 82 ML/MIN
[2024-02-29] VITALS (29 sets, daily range): BP systolic 95–125; BP diastolic 53–79; PULSE 60–77; RESP 9–20; TEMP 97.7–97.9; O2SAT 93–99
[~2024-02-29] VITALS: Ht 182.9 cm; Wt 89.4 kg
[2024-02-29] MEDS: ceFOXitin sod/dextrose 2g/50ml 50 ML IV ONE (05:30)
[2024-02-29] MEDS: DOCUMENT DATE & TIME OF BETA-BLOCKER PO ONE (08:30)
[~2024-02-29 10:48] MED LIST changes: -LORA10CA PO; +LORA10TA7 PO; -METR-159 PO; +ROSU10TA72 PO; -TRAZ-251 PO
[2024-02-29] MEDS ORDERED: TRAZ-251 PO (11:50)
[2024-02-29] MEDS: famotidine 20mg tablet PO ONE (11:58)
[2024-02-29] MEDS: ringers solution, lacted 1,000 ML IV SCH ×2 (11:58→13:15)
[2024-02-29] MEDS ORDERED: BUPIVAcaine 2.5mg/ml inj 50ml vial (contains preservative) ONE (12:40)
[2024-02-29] MEDS ORDERED: LIDOcaine 1% w/EPI 1:100,000 inj. MDV 50 ML VIAL ONE (12:40)
[2024-02-29] MEDS ORDERED: LIDOcaine 1% 30ml preserv. free vial ONE (12:42)
[2024-02-29] MEDS ORDERED: fentaNYL /PF 50mcg/ml 5ml ampule ONE (12:56)
[2024-02-29] MEDS ORDERED: midazolam 1 mg/ML 2ml injection ONE (12:56)
[2024-02-29] MEDS ORDERED: ondansetron/PF 4mg/2ml inj ONE (13:14)
[2024-02-29] MEDS ORDERED: dexamethasone sod phosphate 4mg/ml inj. ONE (13:14)
[2024-02-29] MEDS ORDERED: LIDOcaine 2% (20mg/ml) 5ml vial ONE (13:14)
[2024-02-29] MEDS ORDERED: ePHEDrine 50MG/ML INJ. ONE (13:14)
[2024-02-29] MEDS ORDERED: rocuronium 10mg/ml inj IV ONE ×2 (13:14→15:12)
[2024-02-29] MEDS ORDERED: 0.9 % SODIUM CHLORIDE 10 ML VIAL ONE (13:14)
[2024-02-29] MEDS ORDERED: propofol inj 20 ML IV ONE (13:14)
[2024-02-29] MEDS ORDERED: morphine 2 MG/ML inj. syringe IV PRN (13:15)
[2024-02-29] MEDS ORDERED: morphine 4 MG/ML inj SYRINge IV PRN (13:15)
[2024-02-29] MEDS ORDERED: meperidine/PF 25mg/ml syringe IV PRN ×2 (13:15)
[2024-02-29] MEDS ORDERED: labetalol 20mg/4ml (5mg/ml) syringe IV PRN (13:15)
[2024-02-29] MEDS ORDERED: hydrALAZINE 20mg/ml inj. IV PRN (13:15)
[2024-02-29] MEDS: BUPIVAcaine 2.5mg/ml inj 50ml vial (contains preservative) SQ ONE (13:50)
[2024-02-29] MEDS ORDERED: INDOCYANINE GREEN 25 MG/10 ML VIAL IV ONE (14:01)
[2024-02-29] MEDS ORDERED: non-formulary drug (Fluticasone Propionate (Flonase) 2 SPRAYS) BOTHNARES PRN (16:10)
[2024-02-29] MEDS ORDERED: loratadine 10mg tablet PO PRN (16:10)
[2024-02-29] MEDS: potassium CL 20mEq in D5-1/2NS 1,000 ML IV SCH (16:15)
[2024-02-29] MEDS ORDERED: HYDROmorphone 1 mg/ml syringe IV PRN (16:15)
[2024-02-29] MEDS ORDERED: HYDROmorphone inj. 0.5 MG/0.5 ML DISP.SYRIN IV PRN (16:15)
[2024-02-29] MEDS ORDERED: ondansetron/PF 4mg/2ml inj IV PRN (16:15)
[2024-02-29] MEDS: ondansetron/PF 4mg/2ml inj IV PRN (16:37)
[2024-02-29] MEDS: proCHLORperazine 10 MG/2 ml inj IV PRN (16:51)
[2024-02-29] MEDS: acetaminophen 1,000mg/100ml IV 100 ML IV ONE (16:53)
[2024-02-29 17:28] LABS: ALANINE AMINOTRANSFERASE 40 U/L (12-78); ALBUMIN 3.7 G/DL (3.4-5.0); ALBUMIN/GLOBULIN RATIO 1.4 (1.1-1.5); ALKALINE PHOSPHATASE 40 IU/L (46-116); ASPARTATE AMINO TRANSFERASE 27 U/L (10-37); BILIRUBIN,DIRECT 0.1 MG/DL (0-0.3); BILIRUBIN,TOTAL 0.5 MG/DL (0.1-1.0); CREATININE 1.04 MG/DL (0.60-1.10); FREE T4 (FREE THYROXINE) 1.37 NG/DL (0.73-1.40); POTASSIUM 4.2 MMOL/L (3.5-5.1); TOTAL PROTEIN 6.4 G/DL (6.4-8.2); eCRCL 84 ML/MIN; eGFR 73 ML/MIN
[2024-02-29] MEDS: meperidine/PF 25mg/ml syringe IV PRN (17:46)
[2024-02-29] MEDS: acetaminophen 325mg tablet PO SCH (20:19)
[2024-02-29] MEDS: carVEDilol 12.5mg tablet PO SCH (20:20)
[2024-02-29] MEDS: sacubitril/valsartan 24mg-26mg tablet PO SCH (21:09)
[2024-02-29] MEDS: ketorolac trometh 15mg/ml vial 15 MG/ML ML IV SCH (23:42)
[2024-03-01] VITALS (7 sets, daily range): BP systolic 97–147; BP diastolic 56–87; PULSE 61–75; RESP 16–18; TEMP 97.4–98.5; O2SAT 94–100
[2024-03-01 04:41] LABS: BASOPHILS % (AUTO) 0.1 % (0-1); EOSINOPHILS % (AUTO) 0 % (0-6); HEMOGLOBIN 12.6 g/dl (14.0-17.9); LYMPHOCYTES # (AUTO) 0.4 X10'3 (1.1-4.8); LYMPHOCYTES % (AUTO) 3.1 % (21-51); MEAN CORPUSCULAR HEMOGLOBIN 31.2 PG (27.0-31.0); MEAN CORPUSCULAR HGB CONC 33.2 g/dL (33.0-36.5); MEAN CORPUSCULAR VOLUME 94.1 FL (78-98); MEAN PLATELET VOLUME 8.1 FL (7.4-10.4); MONOCYTES # (AUTO) 0.9 X10'3 (0-0.9); MONOCYTES % (AUTO) 7.4 % (2-12); NEUTROPHILS # (AUTO) 10.8 X10'3 (1.8-7.7); NEUTROPHILS % (AUTO) 89.4 % (42-75); PLATELET COUNT 200 X10'3 (140-440); RED BLOOD COUNT 4.04 X10'6 (4.70-6.10); RED CELL DISTRIBUTION WIDTH 13.3 % (11.5-14.5); WHITE BLOOD COUNT 12.1 X10'3 (4.5-11.0)
[2024-03-01 04:54] LABS: ALBUMIN 3.2 G/DL (3.4-5.0); ANION GAP 5 (8-16); BLOOD UREA NITROGEN 15 MG/DL (7-18); BUN/CREATININE RATIO 15.3 (10.0-20.0); CALCIUM 8.5 MG/DL (8.5-10.1); CHLORIDE 106 MMOL/L (99-107); CREATININE 0.98 MG/DL (0.60-1.10); GLUCOSE 145 MG/DL (70-104); POTASSIUM 4.6 MMOL/L (3.5-5.1); SODIUM 139 MMOL/L (135-145); TOTAL CARBON DIOXIDE 27.8 MMOL/L (24-32); eCRCL 89 ML/MIN; eGFR 78 ML/MIN
[2024-03-01] MEDS: spironolactone 25 MG tablet PO SCH (08:00)
[2024-03-01] MEDS: atorvastatin 20mg tablet PO SCH (08:35)
[2024-03-01] MEDS: enoxaparin 40mg/0.4ml syringe SQ SCH (08:42)
[2024-03-01] MEDS: DAPAGLIFLOZIN 10MG TABLET PO SCH (13:12)
[2024-03-01] MEDS: levoTHYROXINE 175mcg tablet PO SCH (13:12)
[2024-03-01] MEDS: amiodarone 100mg tablet PO SCH (13:12)
[2024-03-01] MEDS: tamsulosin 0.4mg capsule PO SCH (18:58)
[2024-03-01] MEDS: traZODone 50mg tablet PO SCH (21:20)
[2024-03-02 06:00] VITALS: BP 120/69; PULSE 60; RESP 16; TEMP 97.7; O2SAT 95
[2024-03-02 06:14] LABS: BASOPHILS % (AUTO) 0.4 % (0-1); EOSINOPHILS % (AUTO) 0.7 % (0-6); HEMATOCRIT 33.6 % (42.0-52.0); HEMOGLOBIN 11.3 g/dl (14.0-17.9); LYMPHOCYTES # (AUTO) 1.1 X10'3 (1.1-4.8); LYMPHOCYTES % (AUTO) 15.7 % (21-51); MEAN CORPUSCULAR HEMOGLOBIN 31.5 PG (27.0-31.0); MEAN CORPUSCULAR HGB CONC 33.7 g/dL (33.0-36.5); MEAN CORPUSCULAR VOLUME 93.3 FL (78-98); MEAN PLATELET VOLUME 8.1 FL (7.4-10.4); MONOCYTES # (AUTO) 0.7 X10'3 (0-0.9); MONOCYTES % (AUTO) 10.4 % (2-12); NEUTROPHILS # (AUTO) 5.1 X10'3 (1.8-7.7); NEUTROPHILS % (AUTO) 72.8 % (42-75); PLATELET COUNT 145 X10'3 (140-440); RED CELL DISTRIBUTION WIDTH 13.4 % (11.5-14.5)
[2024-03-02 06:29] LABS: ALBUMIN 3.1 G/DL (3.4-5.0); ANION GAP 6 (8-16); BLOOD UREA NITROGEN 16 MG/DL (7-18); CALCIUM 8.5 MG/DL (8.5-10.1); CHLORIDE 106 MMOL/L (99-107); CREATININE 0.84 MG/DL (0.60-1.10); GLUCOSE 96 MG/DL (70-104); POTASSIUM 4.2 MMOL/L (3.5-5.1); SODIUM 139 MMOL/L (135-145); TOTAL CARBON DIOXIDE 27.1 MMOL/L (24-32); eCRCL 104 ML/MIN; eGFR > 90 ML/MIN
[2024-03-02 08:00] VITALS: RESP 16; O2SAT 95
[2024-03-02 10:00] VITALS: BP 110/74; PULSE 59; RESP 16; TEMP 98; O2SAT 96
[2024-03-02] MEDS ORDERED: apixaban 5mg tablet PO SCH (20:00)
== END 2024-03-02 17:38 | disposition home or self-care (01) | DRG 231 ==
LOC: PAS IN 10:48 → SUR 3N 18:55
PROVIDERS: ADMIT Surgery; ATTEND Surgery
PROC: 8E0W4CZ Robotic Assisted Procedure of Trunk Region, Percutaneous Endoscopic Approach (ICD-10-PCS; 2024-02-29)
PROC: 0DTF4ZZ Resection of Right Large Intestine, Percutaneous Endoscopic Approach (ICD-10-PCS; principal; 2024-02-29 12:48)
DX: C18.3 Malignant neoplasm of hepatic flexure (principal); R33.9 Retention of urine, unspecified; Z79.899 Other long term (current) drug therapy
CPT/HCPCS: 36415; 80048; 80053; 80076; 82565; 82948; 84132; 84439; 84443; 85025; 86885; 86900; 86901; 87081; A4215; A4618; A5200; G0378; J0131; J0694; J0780; J1100; J1650; J1885; J2003; J2175; J2250; J2405; J2704; J3010; J3480; J3490; J7120

== ENCOUNTER 2024-08-28 21:39 | Emergency (ER) | payer MEDICAID ==
[~2024-08-28] VITALS: Ht 182.9 cm; Wt 93.0 kg
[~2024-08-28 21:39] MED LIST changes: -AMI200T PO; +AMIO200T76 PO; -CARV25TA2 PO; +LOP25T PO; +TRAZ-251 PO
[2024-08-28 22:03] VITALS: BP 111/61; PULSE 61; RESP 18; O2SAT 98
[2024-08-28] MEDS: LIDOcaine 1% 30ml preserv. free vial IJ STA (22:52)
[2024-08-28] MEDS: TETanus/Pertussis (Acell)/Diphther VAC/PF (Tdap-Adult) 0.5ml syringe IMVAC ONE (23:14)
[2024-08-28] MEDS ORDERED: AMOX-580 PO (23:23)
--- NOTE | 2024-08-28 23:23 | Physician Documentation ---
History of Present Illness ~ Chief Complaint: Puncture Wound Stated Complaint: FISH HOOK Time Seen by MD: 22:53 Primary Medical Doctor: Dr. Berkley Levi (cardiology) HPI Patient is seen today with complaints of getting a fishing hook stuck in his rig ht long finger just prior to arrival. Patient has no other concern or complaint at this time. Tetanus Within 5 Years: No Medication Reconciliation Allergies: Coded Allergies: No Known Allergies (Unverified , 08/28/24) Scheduled Amiodarone Hcl (Cordarone), 200 MG PO BID Apixaban (Eliquis), 1 TAB PO BID, (Reported) Dapagliflozin Propanediol (Farxiga), 1 TAB PO DAILY, (Reported) Levothyroxine Sodium (Levothyroxine Sodium), 1 TAB PO DAILY, (Reported) Metoprolol Tartrate* (Lopressor tablet*), 25 MG PO Q12H Rosuvastatin Calcium (Rosuvastatin Calcium), 1 TAB PO QAM, (Reported) Sacubitril/Valsartan (Entresto 24 mg-26 mg Tablet), 1 TAB PO BID, (Reported) Spironolactone (Spironolactone), 1 TAB PO DAILY, (Reported) Trazodone HCl (Trazodone HCl), 1 TAB PO HS, (Reported) Scheduled PRN Fluticasone Propionate (Flonase), 2 SPRAYS BOTHNARES DAILY PRN for allergies, (Reported) Loratadine (Loratadine), 1 TAB PO DAILY PRN for allergies, (Reported) Past Medical History Past Medical History: No Pertinent History, Atrial Fibrillation, Congestive Heart Failure, Hypothyroidism, *PSYCH*, Anxiety, Depression Past Surgical History: noncontributory Patient History: Patient reports no known family medical history. Alcohol Use: None Drug Use: none Lives with: Spouse Lives In: Home Occupation: employed Review of Systems Constitutional: Denies: chills, fever, weakness Eyes: Denies: pain, blurred vision ENT: Denies: ear pain, nose pain, throat pain, mouth pain Respiratory: Denies: cough, shortness of breath Cardiovascular: Denies: chest pain, palpitations Gastrointestinal: Denies: abdominal pain, nausea, vomiting Genitourinary: Denies: burning, dysuria Male Genitalia: Denies: penile discharge, testicular pain Neurological: Denies: headache, dizziness Musculoskeletal: Denies: pain, swelling Integumentary: Denies: rash, lesions Allergic/Immunologic: Denies: hives, itching Hematologic/Lymphatic: Denies: no symptoms reported Psychiatric: Denies: depression, anxiety Physical Exam Vital Signs: Temperature: 97.3, Source: Temporal, Heart Rate: 61, Respiratory Rate: 18, BP: 111/61, Pulse Oximetry: 98, Weight: 93.000 Oxygen Flow Rate: 0 Physical Exam General: Awake and Alert, no acute distress. HEENT: Conjunctiva pink, Sclera clear, Mucus Membranes moist. Neck: Supple without masses and tenderness. Resp: Unlabored. Lungs clear to auscultation bilaterally. Heart: Regular Rate and rhythm, normal S1 and S2 without murmur, rub or gallop. Extremities: No cyanosis,clubbing or edema. Skin: Patient on exam does have fishing hook embedded into his right long finge r. No surrounding erythema or swelling or purulent drainage. Procedures Additional Procedures Additional Procedure Note Procedure note: Digital block was achieved using 1% lidocaine without epinephrine about 4 cc into the right long finger. Patient tolerated well. Fishing hook was then firmly gripped using hemostat and removed by myself today. Patient tolerated well. Adhesive bandage placed over wound site. Progress Results/Orders Results/Orders Completed Orders - YASMINE FLORES Lidocaine 1% 30ml Vial (Xylocaine 1% Via (08/28/24 22:33) Tetanus/Pertuss/Diph Acell/Pf (Boostrix (08/28/24 22:40) Medications Received in ER Medications (Trade) Dose Ordered Sig/Carlos Route PRN Reason Start Time Stop Time Status Last Admin Dose Admin (Boostrix vaccine syringe) 0.5 ml ONCE ONCE IMVAC 08/28/24 22:40 08/28/24 22:41 DC 08/28/24 23:14 0.5 ML Vital Signs 08/28/24 22:03 Temp 97.3 Pulse 61 Resp 18 B/P (MAP) 111/61 Pulse Ox 98 O2 Flow Rate 0 Medical Decision Making Findings Patient is seen today with complaints of getting a fishing hook stuck in his right long finger just prior to arrival. Patient has no other concern or complaint at this time. Patient did have right long finger and numbed up by myself today using digital block and fishing hook was removed today by myself successfully. Patient was given Tdap vaccination. Patient was also given prophylactic dose of antibiotic. Patient will follow up with primary care in 2-3 days if no better as needed sooner. Return to ED with any worsening, concerning or changing symptoms. Departure Disposition: 01 HOME / SELF CARE / HOMELESS Impression: Primary Impression: Puncture wound Additional Impression: Fish hook injury of finger of right hand Qualified Codes: S69.91XA - Unspecified injury of right wrist, hand and finger(s), initial encounter Condition: Improved Discharge Instructions: Puncture Wound, [id number] Additional Instructions: Patient did have right long finger and numbed up by myself today using digital block and fishing hook was removed today by myself successfully. Patient was given Tdap vaccination. Patient was also given prophylactic dose of antibiotic. Patient will follow up with primary care in 2-3 days if no better as needed sooner. Return to ED with any worsening, concerning or changing symptoms. Referrals: NO PRIMARY CARE PROVIDER (PCP) Prescriptions Amox Tr/Potassium Clavulanate 875/125 MG (Augmentin 875/125 MG) 875 Mg-125 Mg Tablet 1 TAB PO Q12H for 3 Days, #6 TAB Prov: YASMINE FLORES 08/28/24 Signature Scribe Signature: No scribe Attestation: No scribe YASMINE FLORES Aug 28, 2024 23:23
[2024-08-28 23:40] VITALS: TEMP 97.3
[2024-08-28] MEDS: amox tr/potassium clavulanate 875/125mg TAB PO STA (23:44)
== END 2024-08-28 23:47 | disposition home or self-care (01) ==
LOC: ER 21:39
DX: S61.242A Puncture wound with foreign body of right middle finger without damage to nail, initial encounter (principal); W26.8XXA Contact with other sharp object(s), not elsewhere classified, initial encounter; Y93.89 Activity, other specified; Y92.89 Other specified places as the place of occurrence of the external cause; Y99.8 Other external cause status
CPT/HCPCS: 64450; 90471; 90715; 99284

== ENCOUNTER 2024-10-24 07:14 | Outpatient (CLI) | payer MEDICAID ==
[~2024-10-24] VITALS: Ht 182.9 cm; Wt 90.7 kg
[2024-10-24 07:51] VITALS: PULSE 76; RESP 16; O2SAT 96
[2024-10-24] MEDS: albuterol 2.5 MG/3 ML nebule NEB ONE (07:52)
[2024-10-24 08:08] VITALS: PULSE 74; RESP 18
--- NOTE | 2024-10-28 13:38 | PROCEDURE NOTE - Respiratory ---
Procedure Note-Respiratory Providers to Copies To 1: VANESSA BURCH MD Procedure Name: This is a spirometry study dated October 24, 2024. The spirometry study was performed both before and after inhaled bronchodilator. Spirometry measurements: Both the forced vital capacity and the FEV1 measurements are in the normal range. The FEV1 ratio however is depressed. Several of the flow rate measurements show significant reduction. After inhaled bronchodilator was administered, some of the flow rates show slight improvement. Overall conclusion: This study is abnormal. There is evidence of mild obstructive ventilatory defect. The patient shows slight improvement with inhaled bronchodilator. 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 Regular use of bronchodilator medication may help this patient. We have previous studies for comparison dated three years earlier. Over the past three years the patient shows slight deterioration in both the forced vital capacity and the FEV1. These findings are not suggestive of amiodarone pulmonary toxicity. JENA CAIN MD Oct 28, 2024 13:38
== END 2024-10-24 23:59 | disposition home or self-care (01) ==
LOC: RT 07:14
PROVIDERS: ATTEND Internal Medicine Interventional Cardiology
DX: I48.91 Unspecified atrial fibrillation (principal); I50.9 Heart failure, unspecified; J98.4 Other disorders of lung
CPT/HCPCS: 94060; 94760